=== PATIENT | female | born 1945 | race Caucasian/White ===

== ENCOUNTER → 2016-08-07 | Outpatient (CLI) | payer OTHER ==
[~2016-08-07] MED LIST: ATOR10TA PO
[2016-08-07 10:54] LABS: Urine RBC None Seen /hpf (0 - 4)
[2016-08-07 11:14] LABS: Basophils # (auto) 0 uL; Basophils % (auto) 0.6 % (0.0-2.0); Eosinophils # (auto) 0.2 uL; Eosinophils % (auto) 2.7 % (0.0-7.0); Hematocrit 48.6 % (36.0-46.0); Lymphocytes # (auto) 2.1 uL; Lymphocytes % (auto) 36.7 % (10.0-50.0); Mean Corpuscular Hemoglobin 30.9 pg (28.0-32.0); Mean Corpuscular Volume 93.7 fL (80.0-100.0); Monocytes # (auto) 0.5 uL; Monocytes % (auto) 9.6 % (0.0-12.0); Neutrophils # (auto) 2.8 uL; Neutrophils % (auto) 50.4 % (37.0-80.0); Platelet Count (auto) 305 10^3/uL (140-450); Red Cell Distribution Width 12.9 % (11.6-16.0); White Blood Cell 5.6 10^3/uL (4.4-10.8)
[2016-08-07 11:18] LABS: Urine Bilirubin Negative (Negative); Urine Blood Negative /uL (Negative); Urine Color Yellow (Yellow); Urine Glucose Normal (Normal); Urine Ketone Negative (Negative); Urine Nitrite Negative (Negative); Urine Squamous Epithelial Cell FEW /hpf (<5); Urine Urobilinogen Normal (Negative); Urine pH 6.5 (5.0-8.0)
[2016-08-07 11:30] LABS: Albumin 3.7 g/dL (3.4-5.0); BUN/Creatinine Ratio 23.6; Bilirubin, Total 0.4 mg/dL (0.2-1.0); Potassium 5.1 mmol/L (3.5-5.1); Total Protein 6.8 g/dL (6.4-8.2)
== END | disposition home or self-care (01) ==
LOC: LAB 09:47
PROVIDERS: ATTEND Internal Medicine
DX: E78.00 Pure hypercholesterolemia, unspecified (principal); Z00.00 Encounter for general adult medical examination without abnormal findings; I10 Essential (primary) hypertension
CPT/HCPCS: 36415; 80053; 80061; 81001; 83615; 84443; 85025

== ENCOUNTER 2020-11-28 08:15 | Emergency (ER) | payer OTHER ==
[~2020-11-28] VITALS: Ht 152.4 cm; Wt 73.5 kg
[2020-11-28] MEDS ORDERED: PRED1SUS4 LEFTEYE (08:36)
[2020-11-28] MEDS ORDERED: FORM1POW2 (08:36)
[2020-11-28] MEDS ORDERED: FLUT1AER3 PO (08:36)
[2020-11-28] MEDS ORDERED: LISI-275 PO (08:36)
[2020-11-28] MEDS ORDERED: ALBU0.084 NEB (08:36)
[2020-11-28] MEDS ORDERED: PANT-62 (08:36)
[2020-11-28] MEDS ORDERED: PRED1SUS4 (08:36)
[2020-11-28] MEDS ORDERED: ofloxacin (08:36)
[2020-11-28] MEDS ORDERED: ALBU108A5 PO (08:36)
[2020-11-28] MEDS ORDERED: FLUT100M INH (08:36)
[2020-11-28] MEDS ORDERED: ALPR0.255 PO (08:36)
[2020-11-28] MEDS ORDERED: ATOR20TA50 PO (08:36)
[2020-11-28] MEDS ORDERED: AMLO-496 PO (08:36)
[2020-11-28 08:52] LABS: Basophils # (auto) 0 10 ^3/uL (0-0.2); Basophils % (auto) 0.6 % (0.0-2.0); Eosinophils # (auto) 0.1 10 ^3/uL (0-0.8); Eosinophils % (auto) 1.5 % (0.0-7.0); Hematocrit 47.4 % (36.0-46.0); Hemoglobin 15.6 g/dL (12.2-16.2); Lymphocytes # (auto) 0.9 10 ^3/uL (0.4-5.4); Lymphocytes % (auto) 16.7 % (10.0-50.0); Mean Corpuscular Hemoglobin 31.6 pg (28.0-32.0); Mean Corpuscular Hgb Conc. 32.9 g/dL (32.0-36.0); Mean Corpuscular Volume 95.9 fL (80.0-100.0); Monocytes # (auto) 0.5 10 ^3/uL (0-1.3); Monocytes % (auto) 8.8 % (0.0-12.0); Neutrophils # (auto) 3.7 10 ^3/uL (1.6-8.6); Neutrophils % (auto) 72.4 % (37.0-80.0); Nucleated Red Blood Cells % 0.1 %; Platelet Count (auto) 229 10^3/uL (140-450); Red Blood Cells 4.94 10^6/uL (4.0-5.20); Red Cell Distribution Width 14.9 % (11.8-14.3); White Blood Cell 5.1 10^3/uL (4.4-10.8)
[2020-11-28 09:17] LABS: Albumin 3.4 g/dL (3.4-5.0); Anion Gap 4 (5-15); Blood Urea Nitrogen 12 mg/dL (7-18); Calcium 8.1 mg/dL (8.5-10.1); Carbon Dioxide 31 mmol/L (21-32); Chloride 105 mmol/L (98-107); Glucose 131 mg/dL (74-106); Potassium 4.2 mmol/L (3.5-5.1); Sodium 140 mmol/L (136-145)
[2020-11-28 09:27] LABS: Alanine Aminotransferase 22 U/L (13-56); Alkaline Phosphatase 107 U/L (45-117); Aspartate Aminotransferase 17 U/L (15-37); BUN/Creatinine Ratio 21.1; Bilirubin, Total 0.4 mg/dL (0.2-1.0); GFR African American 133 mL/min; GFR Non-African American 110 mL/min
[2020-11-28] MEDS ORDERED: methylPREDNISolone SOD SUCC 125 MG/2 ML VL IV ONE (10:45)
[2020-11-28 11:00] VITALS: BP 150/61
== END 2020-11-28 12:46 | disposition home or self-care (01) ==
LOC: EDBD 08:15 → ER 08:15
DX: J44.1 Chronic obstructive pulmonary disease with (acute) exacerbation (principal); E78.5 Hyperlipidemia, unspecified; I10 Essential (primary) hypertension; F17.210 Nicotine dependence, cigarettes, uncomplicated; Z98.51 Tubal ligation status; Z79.899 Other long term (current) drug therapy
CPT/HCPCS: 36415; 71045; 80053; 83880; 84484; 85025; 93005; 96374; 99285; J2930

== ENCOUNTER 2021-01-16 07:58 | Emergency (ER) | payer OTHER ==
[~2021-01-16] VITALS: Ht 157.5 cm; Wt 72.6 kg
[~2021-01-16 07:58] MED LIST changes: +ALBU0.084 NEB; +ALBU108A5 PO; +ALPR0.255 PO; +AMLO-496 PO; +ATOR20TA50 PO; +FLUT100M INH; +FLUT1AER3 PO; +FORM1POW2; +LISI-275 PO; +PANT-62; +PRED1SUS4; +PRED1SUS4 LEFTEYE; +ofloxacin
[2021-01-16] MEDS ORDERED: cefTRIAXone 1GM/50ML D5W 50 ML IV ONE (08:00)
[2021-01-16] MEDS ORDERED: methylPREDNISolone SOD SUCC 125 MG/2 ML VL IV ONE (08:00)
[2021-01-16] MEDS ORDERED: LABETALOL HCL 5 MG/ML 4ML SYRINGE IV ONE (08:00)
[2021-01-16] MEDS ORDERED: MAGNESIUM SULFATE 1GM/100ML 100 ML IV ONE (08:15)
[2021-01-16 08:27] LABS: Basophils # (auto) 0 10 ^3/uL (0-0.2); Basophils % (auto) 0.7 % (0.0-2.0); Eosinophils # (auto) 0.1 10 ^3/uL (0-0.8); Eosinophils % (auto) 1.6 % (0.0-7.0); Hematocrit 50.1 % (36.0-46.0); Hemoglobin 16.8 g/dL (12.2-16.2); Lymphocytes # (auto) 1.5 10 ^3/uL (0.4-5.4); Mean Corpuscular Hemoglobin 31.2 pg (28.0-32.0); Mean Corpuscular Hgb Conc. 33.4 g/dL (32.0-36.0); Mean Corpuscular Volume 93.4 fL (80.0-100.0); Monocytes # (auto) 0.5 10 ^3/uL (0-1.3); Monocytes % (auto) 8.4 % (0.0-12.0); Neutrophils % (auto) 65.3 % (37.0-80.0); Nucleated Red Blood Cells % 0.1 %; Red Blood Cells 5.37 10^6/uL (4.0-5.20); White Blood Cell 6.2 10^3/uL (4.4-10.8)
[2021-01-16 08:42] LABS: Albumin 3.5 g/dL (3.4-5.0); Anion Gap 3 (5-15); Blood Urea Nitrogen 15 mg/dL (7-18); Calcium 8.2 mg/dL (8.5-10.1); Carbon Dioxide 31 mmol/L (21-32); Chloride 107 mmol/L (98-107); Glucose 150 mg/dL (74-106); Potassium 3.8 mmol/L (3.5-5.1); Sodium 141 mmol/L (136-145)
[2021-01-16 08:50] LABS: Alanine Aminotransferase 25 U/L (13-56); Alkaline Phosphatase 119 U/L (45-117); Aspartate Aminotransferase 14 U/L (15-37); BUN/Creatinine Ratio 26.8; Bilirubin, Total 0.4 mg/dL (0.2-1.0); GFR African American 135 mL/min; GFR Non-African American 112 mL/min; Total Protein 7.5 g/dL (6.4-8.2)
[2021-01-16] MEDS ORDERED: IOHEXOL 350 MG/ML 100ML IJ ONE (10:28)
[2021-01-16 12:06] LABS: Urine Bacteria NONE SEEN /hpf (None Seen); Urine Blood Negative /uL (Negative); Urine WBC 4 /hpf (0 - 5)
[2021-01-16 12:09] LABS: Urine Specific Gravity > 1.050 (1.001-1.035)
[2021-01-16] MEDS ORDERED: IPRA0.00 IN (12:11)
[2021-01-16] MEDS ORDERED: METH4PAK PO (12:11)
[2021-01-16] MEDS ORDERED: AZITTAB PO (12:11)
[2021-01-16 14:02] VITALS: BP 149/68
== END 2021-01-16 15:00 | disposition home or self-care (01) ==
LOC: EDUNIT# 07:58 → ER 07:58 → EDBD 07:58 → ER 15:00
DX: J44.1 Chronic obstructive pulmonary disease with (acute) exacerbation (principal); R06.03 Acute respiratory distress; R79.89 Other specified abnormal findings of blood chemistry; E78.5 Hyperlipidemia, unspecified; I10 Essential (primary) hypertension; Z98.51 Tubal ligation status; Z87.442 Personal history of urinary calculi; Z20.822 Contact with and (suspected) exposure to COVID-19
CPT/HCPCS: 36415; 36600; 71045; 71275; 80053; 81001; 82728; 82805; 83880; 84484; 85025; 85379; 86141; 87426; 93005; 94660; 96365; 96367; 96375; 99291; J0696; J2930; J3475; J3490; Q9967

== ENCOUNTER 2023-06-12 08:05 | Inpatient (IN) | payer MEDICARE, OTHER ==
[~2023-06-12] VITALS: Ht 154.9 cm; Wt 72.1 kg
[~2023-06-12 08:05] MED LIST changes: +ALBU108A5 INH; -ALBU108A5 PO; -AMLO-496 PO; +AMLO1TAB23 PO; +AZITTAB PO; +FLUT1AER3 INH; -FLUT1AER3 PO; +IPRA0.00 IN; +METH4PAK PO
[2023-06-12 08:30] VITALS: PULSE 97; RESP 32; O2SAT 90
[2023-06-12 08:49] LABS: Basophils # (auto) 0 10 ^3/uL (0-0.2); Eosinophils # (auto) 0.1 10 ^3/uL (0-0.8); Hematocrit 50.7 % (36.0-46.0); Monocytes # (auto) 0.6 10 ^3/uL (0-1.3); Neutrophils # (auto) 4.2 10 ^3/uL (1.6-8.6); Red Cell Distribution Width 14.3 % (11.8-14.3)
[2023-06-12 08:50] LABS: Basophils % (auto) 0.5 % (0.0-2.0); Eosinophils % (auto) 1.9 % (0.0-7.0); Hemoglobin 16.7 g/dL (12.2-16.2); Lymphocytes % (auto) 17.1 % (10.0-50.0); Mean Corpuscular Hemoglobin 33.6 pg (28.0-32.0); Mean Corpuscular Hgb Conc. 32.8 g/dL (32.0-36.0); Mean Corpuscular Volume 102.4 fL (80.0-100.0); Monocytes % (auto) 10.4 % (0.0-12.0); Neutrophils % (auto) 70.1 % (37.0-80.0); Nucleated Red Blood Cells % 0.2 %; Red Blood Cells 4.95 10^6/uL (4.0-5.20)
[2023-06-12] MEDS ORDERED: IPRATROPIUM BROM 0.5 MG/2.5ML INH SOL NEB ONE (09:00)
[2023-06-12] MEDS ORDERED: ALBUTEROL SULF 2.5 MG/0.5ML(0.5%) NEB SOLN NEB ONE (09:00)
[2023-06-12] MEDS ORDERED: MAGNESIUM SULFATE 1GM/100ML 100 ML IV ONE (09:00)
[2023-06-12] MEDS ORDERED: methylPREDNISolone SOD SUCC 125 MG/2 ML VL IV ONE (09:00)
[2023-06-12 09:03] LABS: Alanine Aminotransferase 70 U/L (7-40); Albumin 4.4 g/dL (3.2-4.8); Alkaline Phosphatase 124 U/L (46-116); Anion Gap 7 (5-15); Aspartate Aminotransferase 31 U/L (13-40); Blood Urea Nitrogen 8 mg/dL (9-23); Calcium 9.4 mg/dL (8.5-10.1); Carbon Dioxide 31 mmol/L (20-30); Chloride 106 mmol/L (98-107); Glucose 126 mg/dL (74-106); Potassium 4.3 mmol/L (3.5-5.1); Sodium 144 mmol/L (136-145); Total Protein 6.4 g/dL (5.7-8.2)
[2023-06-12 10:07] LABS: Rapid Influenza A Negative (Negative); Rapid Influenza B Negative (Negative)
[2023-06-12 10:09] LABS: COVID19 ANTIGEN SOFIA FIA NEGATIVE (NEGATIVE)
[2023-06-12] MEDS ORDERED: FUROSEMIDE 40 MG/4 ML VIAL IV ONE (10:45)
[2023-06-12] MEDS ORDERED: LISINOPRIL 5 MG TAB PO SCH (12:00)
[2023-06-12 12:24] LABS: Urine Bacteria FEW /hpf (None Seen); Urine Blood Negative /uL (Negative); Urine Clarity Clear (Clear); Urine Protein, UAD 2+ (Negative); Urine Specific Gravity 1.007 (1.001-1.035); Urine Urobilinogen Normal (Negative); Urine WBC 1 /hpf (0 - 5); Urine pH 6.5 (5.0-8.0)
[2023-06-12 12:42] LABS: Urine Color Straw (Yellow)
[2023-06-12] MEDS: ENOXAPARIN SOD 40 MG/0.4 ML SYRINGE SC SCH (12:52)
[2023-06-12] MEDS: methylPREDNISolone SOD SUCC 125 MG/2 ML VL IV SCH ×2 (14:03→22:07)
[2023-06-12 15:43] VITALS: BP 127/96; PULSE 105; RESP 18; RESP 20; TEMP 97.8; O2SAT 97
[2023-06-12 15:45] VITALS: BP 142/83; PULSE 88; RESP 17; TEMP 98.8; O2SAT 93
[2023-06-12 16:44] VITALS: BP 142/83; PULSE 88; RESP 17; TEMP 98.8; O2SAT 93
[2023-06-12] MEDS: FUROSEMIDE 20 MG/2 ML VIAL IV SCH (18:17)
[2023-06-12 20:00] VITALS: PULSE 95
[2023-06-12 22:00] VITALS: BP 141/89; PULSE 87; RESP 17; TEMP 97.5; O2SAT 95
[2023-06-12] MEDS ORDERED: ATORVASTATIN 20 MG TAB PO SCH (22:00)
[2023-06-13] VITALS (12 sets, daily range): BP systolic 140–154; BP diastolic 69–89; PULSE 73–99; RESP 14–22; TEMP 97–98.5; O2SAT 90–100
[2023-06-13 06:29] LABS: Basophils # (auto) 0 10 ^3/uL (0-0.2); Eosinophils # (auto) 0 10 ^3/uL (0-0.8); Lymphocytes # (auto) 0.3 10 ^3/uL (0.4-5.4); Monocytes # (auto) 0.2 10 ^3/uL (0-1.3)
[2023-06-13 06:30] LABS: Basophils % (auto) 0.1 % (0.0-2.0); Hematocrit 47.8 % (36.0-46.0); Hemoglobin 15.7 g/dL (12.2-16.2); Lymphocytes % (auto) 4.2 % (10.0-50.0); Mean Corpuscular Hemoglobin 33.6 pg (28.0-32.0); Mean Corpuscular Hgb Conc. 32.8 g/dL (32.0-36.0); Mean Corpuscular Volume 102.3 fL (80.0-100.0); Monocytes % (auto) 2.4 % (0.0-12.0); Neutrophils # (auto) 7.3 10 ^3/uL (1.6-8.6); Neutrophils % (auto) 93.3 % (37.0-80.0); Red Blood Cells 4.67 10^6/uL (4.0-5.20); White Blood Cell 7.9 10^3/uL (4.4-10.8)
[2023-06-13] MEDS: methylPREDNISolone SOD SUCC 125 MG/2 ML VL IV SCH (06:33)
[2023-06-13] MEDS: FUROSEMIDE 20 MG/2 ML VIAL IV SCH ×2 (06:34→17:54)
[2023-06-13 06:41] LABS: Alanine Aminotransferase 48 U/L (7-40); Albumin 4.1 g/dL (3.2-4.8); Alkaline Phosphatase 103 U/L (46-116); Anion Gap 6 (5-15); Aspartate Aminotransferase 15 U/L (13-40); BUN/Creatinine Ratio 16.4 (10.0-20.0); Blood Urea Nitrogen 10 mg/dL (9-23); Calcium 9.3 mg/dL (8.5-10.1); Carbon Dioxide 36 mmol/L (20-30); Chloride 102 mmol/L (98-107); Glucose 173 mg/dL (74-106); LDL Cholesterol 98 mg/dL (< 100); Potassium 4.1 mmol/L (3.5-5.1); Sodium 144 mmol/L (136-145); Triglycerides 78 mg/dL (< 150)
[2023-06-13 06:42] LABS: Bilirubin, Total 0.5 mg/dL (0.2-1.0); Cholesterol 206 mg/dL (< 200); HDL Cholesterol 89 mg/dL (40-59); Total Protein 6.2 g/dL (5.7-8.2)
[2023-06-13] MEDS ORDERED: methylPREDNISolone SOD SUCC 40 MG/ML VL IV SCH (10:00)
[2023-06-13] MEDS ORDERED: amLODIPine BESYLATE 5 MG TAB PO SCH (10:00)
[2023-06-13] MEDS ORDERED: ATORVASTATIN 20 MG TAB PO SCH ×2 (10:00→22:00)
[2023-06-13] MEDS: ASPirin 81 mg TAB PO SCH (10:03)
[2023-06-13] MEDS: PANTOPRAZOLE 40 MG TAB PO SCH (10:03)
[2023-06-13] MEDS: ENOXAPARIN SOD 40 MG/0.4 ML SYRINGE SC SCH (10:04)
[2023-06-13] MEDS: IPRATROPIUM BROM 0.5 MG/2.5ML INH SOL NEB PRN ×2 (10:34→19:58)
[2023-06-13] MEDS: ALBUTEROL SULF 2.5 MG/0.5ML(0.5%) NEB SOLN NEB PRN ×2 (10:34→19:58)
[2023-06-13] MEDS ORDERED: cefTRIAXone 1GM/50ML D5W 50 ML IV ONE (10:45)
[2023-06-13] MEDS ORDERED: AZITHROMYCIN 500MG/ 250ML 250 ML IV ONE (10:45)
[2023-06-13 12:24] LABS: Free T3 2.14 pg/mL (2.3-4.2)
[2023-06-13] MEDS ORDERED: PANT40TA57 PO (13:27)
[2023-06-13] MEDS ORDERED: LISINOPRIL 5 MG TAB PO SCH (13:30)
[2023-06-13] MEDS: METOPROLOL TARTRATE 25 MG TAB PO SCH (21:05)
[2023-06-13] MEDS ORDERED: METOPROLOL TARTRATE 25 MG TAB PO SCH (22:00)
[2023-06-14 05:00] VITALS: BP 143/67; PULSE 63; RESP 17; TEMP 97.8; O2SAT 97
[2023-06-14] MEDS ORDERED: FUROSEMIDE 20 MG/2 ML VIAL IV SCH ×3 (06:00→10:00)
[2023-06-14 06:08] LABS: Basophils # (auto) 0 10 ^3/uL (0-0.2); Basophils % (auto) 0.1 % (0.0-2.0); Eosinophils # (auto) 0 10 ^3/uL (0-0.8); Eosinophils % (auto) 0.1 % (0.0-7.0); Neutrophils # (auto) 7.1 10 ^3/uL (1.6-8.6); White Blood Cell 8.7 10^3/uL (4.4-10.8)
[2023-06-14 06:11] LABS: Hemoglobin 15.3 g/dL (12.2-16.2); Lymphocytes # (auto) 0.9 10 ^3/uL (0.4-5.4); Lymphocytes % (auto) 9.8 % (10.0-50.0); Mean Corpuscular Hemoglobin 33.2 pg (28.0-32.0); Mean Corpuscular Hgb Conc. 32.5 g/dL (32.0-36.0); Mean Corpuscular Volume 102.4 fL (80.0-100.0); Monocytes # (auto) 0.8 10 ^3/uL (0-1.3); Monocytes % (auto) 8.6 % (0.0-12.0); Neutrophils % (auto) 81.4 % (37.0-80.0); Red Blood Cells 4.59 10^6/uL (4.0-5.20)
[2023-06-14 06:34] LABS: Anion Gap 4 (5-15); Carbon Dioxide 38 mmol/L (20-30); Chloride 101 mmol/L (98-107); Potassium 3.8 mmol/L (3.5-5.1); Sodium 143 mmol/L (136-145)
[2023-06-14 06:40] LABS: BUN/Creatinine Ratio 26.9 (10.0-20.0); Blood Urea Nitrogen 18 mg/dL (9-23); Glucose 114 mg/dL (74-106)
[2023-06-14 06:41] LABS: Magnesium 2.2 mg/dL (1.6-2.6)
[2023-06-14 08:00] VITALS: PULSE 50; PULSE 62; O2SAT 95
[2023-06-14 09:00] VITALS: BP 144/69; PULSE 69; RESP 24; TEMP 97.7; O2SAT 96
[2023-06-14] MEDS ORDERED: cefTRIAXone 1GM/50ML D5W 50 ML IV SCH (09:00)
[2023-06-14] MEDS ORDERED: REGADENOSON 0.4 MG/5 ML SYRG IV ONE ×2 (09:06→09:15)
[2023-06-14] MEDS: ENOXAPARIN SOD 40 MG/0.4 ML SYRINGE SC SCH (09:58)
[2023-06-14] MEDS: METOPROLOL TARTRATE 25 MG TAB PO SCH (09:59)
[2023-06-14 10:00] VITALS: O2SAT 91
[2023-06-14] MEDS ORDERED: methylPREDNISolone SOD SUCC 40 MG/ML VL IV SCH (10:00)
[2023-06-14] MEDS: ASPirin 81 mg TAB PO SCH (10:00)
[2023-06-14] MEDS: PANTOPRAZOLE 40 MG TAB PO SCH (10:00)
[2023-06-14] MEDS ORDERED: amLODIPine BESYLATE 5 MG TAB PO SCH (10:00)
[2023-06-14] MEDS ORDERED: AZITHROMYCIN 500MG/ 250ML 250 ML IV SCH (10:00)
[2023-06-14 11:17] VITALS: BP 136/65; PULSE 63; RESP 18; TEMP 97.6; O2SAT 95
[2023-06-14 11:28] LABS: Free T4 (Free Thyroxine) 0.88 ng/dL (0.89-1.76)
[2023-06-15] MEDS ORDERED: SACUBITRIL-VALSARTAN 24mg/26mg TAB PO SCH (02:00)
== END 2023-06-14 12:30 | disposition home or self-care (01) | DRG 177 ==
LOC: EDBD 08:05 → ER 08:05 → TELE 12:06 → TELE-EAST 15:35 → EAST 06-14 09:56
PROVIDERS: ADMIT Internal Medicine; ATTEND Internal Medicine
DX: J15.69 Pneumonia due to other Gram-negative bacteria (principal); I50.41 Acute combined systolic (congestive) and diastolic (congestive) heart failure; J96.01 Acute respiratory failure with hypoxia; J96.02 Acute respiratory failure with hypercapnia; J44.1 Chronic obstructive pulmonary disease with (acute) exacerbation; J44.0 Chronic obstructive pulmonary disease with (acute) lower respiratory infection; E78.5 Hyperlipidemia, unspecified; Z20.822 Contact with and (suspected) exposure to COVID-19; E03.9 Hypothyroidism, unspecified; E66.9 Obesity, unspecified; F41.9 Anxiety disorder, unspecified; R91.1 Solitary pulmonary nodule; I11.0 Hypertensive heart disease with heart failure; Z87.442 Personal history of urinary calculi; Z87.891 Personal history of nicotine dependence; Z82.3 Family history of stroke; Z83.3 Family history of diabetes mellitus; Z68.30 Body mass index [BMI] 30.0-30.9, adult
CPT/HCPCS: 36415; 71045; 71250; 78452; 80048; 80053; 80061; 81001; 82962; 83036; 83735; 83880; 84439; 84443; 84481; 84484; 85025; 85379; 87081; 87426; 87804; 93005; 93017; 93306; 94640; 94644; 96365; 96372; 96375; 99291; G0378

== ENCOUNTER → 2023-08-15 | Outpatient (CLI) | payer MEDICARE, OTHER ==
[~2023-08-15] MED LIST changes: -ALBU0.084 NEB; +ALBUTEROL SULF 2.5 MG/0.5ML(0.5%) NEB SOLN ONE; -ALPR0.255 PO; -ATOR10TA PO; -AZITTAB PO; -FLUT100M INH; -FORM1POW2; -IPRA0.00 IN; -METH4PAK PO; -PANT-62; +PANT40TA57 PO; -PRED1SUS4; -PRED1SUS4 LEFTEYE; -ofloxacin
== END | disposition home or self-care (01) ==
LOC: RT 08:32
PROVIDERS: ATTEND Internal Medicine Pulmonary Disease
DX: J44.9 Chronic obstructive pulmonary disease, unspecified (principal)
CPT/HCPCS: 94060; 94727; 94729

== ENCOUNTER 2024-07-20 03:17 | Inpatient (IN) | payer MEDICARE, OTHER ==
[2024-07-20] VITALS (29 sets, daily range): BP systolic 76–150; BP diastolic 44–127; PULSE 82–128; RESP 15–32; TEMP 98–101.2; O2SAT 89–100
[~2024-07-20] VITALS: Ht 152.4 cm; Wt 67.3 kg
[~2024-07-20 03:17] MED LIST changes: -ALBUTEROL SULF 2.5 MG/0.5ML(0.5%) NEB SOLN ONE
--- NOTE | 2024-07-20 03:41 | ED.PDOC ---
SOB-HPI HPI Comments 79-year-old female came to ER via EMS for shortness of breath pain. Patient has a history of hypertension, CHF, COPD on home oxygen at 6 liters/minute. Few hours ago, developed shortness of breath progressively worsening. Denies any chest pains or wheezing. But arrival patient is saturating 82% at 6 lpm. Patient was placed in the non-rebreather and went up to 95%. 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 Family History Family History: Reviewed,noncontributory to illness Social History Smoker: Non-Smoker, Quit Greater Than 1 Year Alcohol: Denies ETOH Use Drugs: Denies Drug Use Lives In: Home Constitutional: denies: chills, diaphoresis, fatigue, fever, malaise, sweats, weakness, others EENTM: denies: blurred vision, double vision, ear bleeding, ear discharge, ear drainage, ear pain, ear ringing, eye pain, eye redness, hearing loss, mouth pain, mouth swelling, nasal discharge, nose bleeding, nose congestion, nose pain, photophobia, tearing, throat pain, throat swelling, voice changes, others Respiratory: reports: SOB at rest; denies: cough, hemoptysis, orthopnea, shortness of breath, SOB with excertion, stridor, wheezing, others Cardiovascular: denies: chest pain, dizzy spells, diaphoresis, Dyspnea on exer tion, edema, irregular heart beat, left arm pain, lightheadedness, palpitations, PND, syncope, others Gastrointestinal: denies: abdomen distended, abdominal pain, blood streaked bowels, constipated, diarrhea, dysphagia, difficulty swallowing, hematemesis, melena, nausea, poor appetite, poor fluid intake, rectal bleeding, rectal pain, vomiting, others Genitourinary: denies: abnormal vagina bleeding, burning, dyspareunia, dysuria, flank pain, frequency, hematuria, incontinence, pain, , vagina discharge, urgency, others Neurological: denies: dizziness, fainting, headache, left sided numbness, left sided weakness, numbness, paresthesia, pre-existing deficit, right sided numbness, right sided weakness, seizure, speech problems, tingling, tremors, weakness, others Musculoskeletal: denies: back pain, gout, joint pain, joint swelling, muscle pain, muscle stiffness, neck pain, others Integumetry: denies: bruises, change in color, change in hair/nails, dryness, laceration, lesions, lumps, rash, wounds, others Allergic/Immunocompromised: denies: Difficulty Healing, Frequent Infections, Hives, Itching, others Hematologic/Lymphatic: denies: anemia, blood clots, easy bleeding, easy bruising, swollen glands, others Endocrine: denies: excessive hunger, excessive sweating, excessive thirst, excessive urination, flushing, intolerance to cold, intolerance to heat, unexplained weight gain, unexplained weight loss, others Psychiatric: denies: anxiety, bipolar disorder, depression, hopeless, panic disorder, schizophrenia, sleepless, suicidal, others Physical Exam General Appearance: Normal, Severe Distress HEENT: Normal ENT Inspection, Pharynx Normal, TMs Normal Neck: Full Range of Motion, Non-Tender, Normal, Normal Inspection Respiratory: Chest Non-Tender, Lungs Clear, No Accessory Muscle Use, No Respiratory Distress, Normal Breath Sounds Cardiovascular: No Edema, No JVD, No Murmur, No Gallop, Normal Peripheral Pulses, Regular Rate/Rhythm Breast Exam: Deferred Gastrointestinal: No Organomegaly, Non Tender, No Pulsatile Mass, Normal Bowel Sounds, Soft Genitalia: Deferred Pelvic: Deferred Rectal: Deferred Extremities: No calf tenderness, Normal capillary refill, Normal inspection, Normal range of motion, Non-tender, No pedal edema Musculoskeletal : Apperance: Normal Neurologic: Alert, rpg programmer II-XII nml as Tested, No Motor Deficits, Normal Affect, Normal Mood, No Sensory Deficits Cerebellar Function: Normal Reflexes: Normal Skin: Dry, Normal Color, Warm Lymphatic: No Adenopathy EKG EKG : Pulse Rate (adult): 107 Cardiac Rhythm: ST Hypertrophy: LAE ST: Old, Ant, Infarct Was a procedure done? Was a procedure done?: No Differential Dx Differential Diagnosis: Bronchitis, CHF, COPD, Myocardial infarction, Pneumonia, Respiratory Distress X-Ray, Labs, Meds, VS Vital Signs Date Time Temp Pulse Resp B/P (MAP) Pulse Ox O2 Delivery O2 Flow Rate FiO2 07/20/24 04:30 84 29 120/61 (80) 93 07/20/24 04:25 101 175/76 07/20/24 04:00 102 24 183/82 (115) 100 07/20/24 03:40 107 07/20/24 03:35 99 Bi-Pap+ 100 100 07/20/24 03:35 113 Facial BiPAP Mask 100 07/20/24 03:31 101.6 121 40 212/80 (124) 99 07/20/24 03:30 107 23 100 Bi-Pap+ 45 45 07/20/24 03:30 101.6 107 23 212/88 (129) 100 101.6 07/20/24 03:27 107 Lab Test 07/20/24 03:54 07/20/24 03:48 Range/Units Blood Gas Specimen Type Arterial Blood Gas Sample Site Right radial Blood Gas Patient Temperature 37.0 Arterial Blood Date Drawn [id number] Arterial Blood pH 7.406 7.350-7.450 Arterial Blood Partial Pressure CO2 52.2 H 32.0-45.0 mmHg Arterial Blood Partial Pressure O2 316.9 *H 83.0-108.0 mmHg Arterial Blood HCO3 32.0 H 21.0-28.0 mmol/L Arterial Blood Oxygen Saturation 99.8 H 94.0-98.0 % Arterial Blood Base Excess 5.9 H -2.0-3.0 mmol/L Arterial Blood Oxyhemoglobin 98.4 H 94.0-98.0 % Arterial Blood Carboxyhemoglobin 0.9 0.5-1.5 % Arterial Blood Methemoglobin 0.5 0.0-1.5 % Jacek Test Yes Blood Gas Total Hemoglobin 14.80 12.0-16.0 g/dL Blood Gas Set Respiration Rate 12.0 Blood Gas Modality Mask - bipap FiO2 % 100.0 Blood Gas EPAP 6 Blood Gas IPAP 14 Blood Gas Critical Value Read Back Yes Blood Gas Notified Whom Md sara mckinley Blood Gas Notified Time [id number] Blood Gas Notified By Social Science Manager esha narayanan White Blood Count 4.7 4.4-10.8 10^3/uL Red Blood Count 4.49 4.0-5.20 10^6/uL Hemoglobin 14.6 12.2-16.2 g/dL Hematocrit 44.5 36.0-46.0 % Mean Corpuscular Volume 99.1 80.0-100.0 fL Mean Corpuscular Hemoglobin 32.6 H 28.0-32.0 pg Mean Corpuscular Hemoglobin Concent 32.9 32.0-36.0 g/dL Red Cell Distribution Width 12.4 11.8-14.3 % Platelet Count 161 140-450 10^3/uL Mean Platelet Volume 6.4 L 6.9-10.8 fL Neutrophils (%) (Auto) 82.9 H 37.0-80.0 % Lymphocytes (%) (Auto) 8.0 L 10.0-50.0 % Monocytes (%) (Auto) 8.3 0.0-12.0 % Eosinophils (%) (Auto) 0.6 0.0-7.0 % Basophils (%) (Auto) 0.2 0.0-2.0 % Neutrophils # (Auto) 3.9 1.6-8.6 10 ^3/uL Lymphocytes # (Auto) 0.4 0.4-5.4 10 ^3/uL Monocytes # (Auto) 0.4 0-1.3 10 ^3/uL Eosinophils # (Auto) 0 0-0.8 10 ^3/uL Basophils # (Auto) 0 0-0.2 10 ^3/uL Nucleated Red Blood Cells 0.1 % B-Type Natriuretic Peptide 77.62 0-100 pg/mL Current Medications Medications (Trade) Dose Ordered Sig/Janet Route Start Time Stop Time Status Last Admin Labetalol HCl (Labetalol HCl) 20 mg ONCE ONCE IV 07/20/24 04:15 07/20/24 04:16 DC 07/20/24 04:25 Acetaminophen (Ofirmev) 1,000 mg ONCE ONCE IV 07/20/24 04:15 07/20/24 04:16 DC 07/20/24 04:25 EXAM: XY CHEST XRAY 1 VIEW HISTORY: SOB COMPARISON: XY CHEST PORTABLE on DOS: 06/12/23, CHEST PORTABLE on DOS: 01/16/21, CHEST PORTABLE on DOS: 6/13/21, chest CT dated 06/13/2023 TECHNIQUE: Portable AP view of the chest was performed. FINDINGS: No pneumothorax, consolidative infiltrates, or pulmonary edema. There is central peribronchial thickening. The heart is borderline enlarged. IMPRESSION: Reactive airways disease. The lungs are otherwise clear. PCO2 is 52. CBC is normal. Sepsis protocol was followed. Labetalol was given for hypertension Time of 1ST Reevaluation: 03:32 Reevaluation 1ST: Unchanged Patient Education/Counseling: Diagnosis, Treatment Family Education/Counseling: No Family Present Departure 1 Departure Time of Disposition: 05:33 Impression: Primary Impression: Acute respiratory distress Additional Impressions: COPD with acute exacerbation Reactive airway disease Qualified Codes: J45.901 - Unspecified asthma with (acute) exacerbation Hypertension Disposition: ADMITTED INPATIENT Admit to: [facility] [place] Condition: Guarded Critical Care Note Critical Care Time?: Yes (35 min-critical care time only) Critical care comment: Shortness of breath Stability Stability form required: No Heart Score Heart Score: Heart Score Response (Comments) Value History Moderate Suspicious 1 EKG Repolarization Disturb 1 Age >65 2 Risk Factors >3 or Hx ASHD 2 Troponin Normal limit 0 Total 6 I personally scribed for PANCHO MCKINLEY MD ([email or web address]) on 07/20/24 at 03:40. Electronically submitted by Eulalio Cardenas ([email or web address]). I personally scribed for PANCHO MCKINLEY MD ([email or web address]) on 07/20/24 at 04:27. Electronically submitted by Eulalio Cardenas ([email or web address]). PANCHO MCKINLEY MD Jul 20, 2024 03:40
[2024-07-20 03:59] LABS: Basophils # (auto) 0 10 ^3/uL (0-0.2); Basophils % (auto) 0.2 % (0.0-2.0); Eosinophils # (auto) 0 10 ^3/uL (0-0.8); Eosinophils % (auto) 0.6 % (0.0-7.0); Hematocrit 44.5 % (36.0-46.0); Hemoglobin 14.6 g/dL (12.2-16.2); Lymphocytes # (auto) 0.4 10 ^3/uL (0.4-5.4); Mean Corpuscular Hemoglobin 32.6 pg (28.0-32.0); Mean Corpuscular Hgb Conc. 32.9 g/dL (32.0-36.0); Mean Corpuscular Volume 99.1 fL (80.0-100.0); Monocytes # (auto) 0.4 10 ^3/uL (0-1.3); Monocytes % (auto) 8.3 % (0.0-12.0); Neutrophils # (auto) 3.9 10 ^3/uL (1.6-8.6); Neutrophils % (auto) 82.9 % (37.0-80.0); Nucleated Red Blood Cells % 0.1 %; Platelet Count (auto) 161 10^3/uL (140-450); Red Blood Cells 4.49 10^6/uL (4.0-5.20); Red Cell Distribution Width 12.4 % (11.8-14.3); White Blood Cell 4.7 10^3/uL (4.4-10.8)
[2024-07-20 04:22] LABS: Base Excess 5.9 mmol/L (-2.0-3.0)
[2024-07-20] MEDS: LABETALOL HCL 20 MG/4 ML VL IV ONE (04:25)
[2024-07-20] MEDS: ACETAMINOPHEN IV 1000 MG/100ML (10MG/ML) IV ONE (04:25)
--- NOTE | 2024-07-20 04:25 | DVH ---
EXAM: XY CHEST XRAY 1 VIEW HISTORY: SOB COMPARISON: XY CHEST PORTABLE on DOS: 06/12/23, CHEST PORTABLE on DOS: 01/16/21, CHEST PORTABLE on DOS: 11/28/20, chest CT dated 06/13/2023 TECHNIQUE: Portable AP view of the chest was performed. FINDINGS: No pneumothorax, consolidative infiltrates, or pulmonary edema. There is central peribronchial thicke desirae. The heart is borderline enlarged. IMPRESSION: Reactive airways disease. The lungs are otherwise clear.
[2024-07-20] MEDS: PANTOPRAZOLE 40 MG/10 ML VIAL INJ IV ONE ×2 (06:15→17:00)
[2024-07-20] MEDS: ALBUTEROL SULF 2.5 MG/0.5ML(0.5%) NEB SOLN NEB ONE ×2 (07:12→15:11)
[2024-07-20] MEDS: ONDANSETRON HCL 4 MG/2 ML VIAL IV ONE (07:58)
[2024-07-20] MEDS: methylPREDNISolone SOD SUCC 125 MG/2 ML VL IV ONE (07:58)
--- NOTE | 2024-07-20 14:25 | DVHHP2 ---
History of Present Illness Reason for Visit: Shortness of breath History of Present Illness This 79-year-old female presents in the ED via EMS with a chief complaint of shortness of breath. The patient reports progressive shortness of breath for the past five days. Symptoms is associated with productive cough, shortness of breath, wheezing, and hypoxemia for which prompted patient is to call 911. The patient denies dizziness, syncope, chest pain, abdominal pain, or other acute symptoms. Past medical history of COPD, hypertension, hyperlipidemia, anxiety, and mildly reduced EF. Past Medical History As stated in HPI Past Surgical History Bilateral tubal ligation Family History Reviewed, non-contributory to the management of this case. Past Social History The patient lives at home, denies smoking, alcohol or illicit drugs abuse. Review of Systems Constitutional: Yes: Malaise; No: Fever, Chills, Sweats, Weakness, Other Eyes: No: Pain, Vision change, Conjunctivae inflammation, Eyelid inflammation, Other, Redness ENT: No: Ear pain, Ear discharge, Nose pain, Nose discharge, Nose congestion, Mouth pain, Mouth swelling, Throat pain, Throat swelling, Other Respiratory: Cough, Shortness of breath, SOB with excertion, Wheezing, Sputum; No: Dry, Hemoptysis, Pleuritic Pain, Wheezing, Other Cardiovascular: No: Chest Pain, Palpitations, Orthopnea, Paroxysmal Noc. Dyspnea, Edema, Lt Headedness, Other Gastrointestinal: No: Nausea, Vomiting, Abdominal Pain, Diarrhea, Constipation, Melena, Hematochezia, Other Genitourinary: No Dysuria, No Frequency, No Incontinence, No Hematuria, No Retention, No Other Musculoskeletal: No: other, neck pain, shoulder pain, arm pain, back pain, hand pain, leg pain, foot pain Skin: No: Rash, Lesions, Jaundice, Bruising, Other Neurological: No: Weakness, Numbness, Incoordination, Change in speech, Confusion, Seizures, Other Allergies: Coded Allergies: NO KNOWN ALLERGIES (Unverified , 06/12/23) Exam Vital Signs Vital Signs Date Time Temp Pulse Resp B/P (MAP) Pulse Ox O2 Delivery O2 Flow Rate FiO2 07/20/24 11:37 97 07/20/24 10:00 17 167/56 (93) 90 07/20/24 09:00 Nasal Cannula* 6 44 07/20/24 08:54 98.8 98.8 General Appearance: Alert, Oriented X3, Cooperative, mild distress HEENT: Atraumatic, PERRLA, EOMI Respiratory: Other (Rales, wheezing) Cardiovascular: Regular rate, Normal S1, Normal S2 Abdominal: Normal bowel sounds, Soft, No tenderness Extremities: No clubbing, No cyanosis, No edema, Normal pulses Skin: No rashes, No breakdown, No significant lesion Neuro: Normal gait, Normal speech, Normal tone Psych/Mental Status: Mental status NL Labs/Xrays Labs Test 07/20/24 03:54 07/20/24 03:48 Range/Units Blood Gas Specimen Type Arterial Blood Gas Sample Site Right radial Blood Gas Patient Temperature 37.0 Arterial Blood Date Drawn [id number] Arterial Blood pH 7.406 7.350-7.450 Arterial Blood Partial Pressure CO2 52.2 H 32.0-45.0 mmHg Arterial Blood Partial Pressure O2 316.9 *H 83.0-108.0 mmHg Arterial Blood HCO3 32.0 H 21.0-28.0 mmol/L Arterial Blood Oxygen Saturation 99.8 H 94.0-98.0 % Arterial Blood Base Excess 5.9 H -2.0-3.0 mmol/L Arterial Blood Oxyhemoglobin 98.4 H 94.0-98.0 % Arterial Blood Carboxyhemoglobin 0.9 0.5-1.5 % Arterial Blood Methemoglobin 0.5 0.0-1.5 % Jacek Test Yes Blood Gas Total Hemoglobin 14.80 12.0-16.0 g/dL Blood Gas Set Respiration Rate 12.0 Blood Gas Modality Mask - bipap FiO2 % 100.0 Blood Gas EPAP 6 Blood Gas IPAP 14 Blood Gas Critical Value Read Back Yes Blood Gas Notified Whom Md sara herron Blood Gas Notified Time [id number] Blood Gas Notified By Computing Architect esha narayanan White Blood Count 4.7 4.4-10.8 10^3/uL Red Blood Count 4.49 4.0-5.20 10^6/uL Hemoglobin 14.6 12.2-16.2 g/dL Hematocrit 44.5 36.0-46.0 % Mean Corpuscular Volume 99.1 80.0-100.0 fL Mean Corpuscular Hemoglobin 32.6 H 28.0-32.0 pg Mean Corpuscular Hemoglobin Concent 32.9 32.0-36.0 g/dL Red Cell Distribution Width 12.4 11.8-14.3 % Platelet Count 161 140-450 10^3/uL Mean Platelet Volume 6.4 L 6.9-10.8 fL Neutrophils (%) (Auto) 82.9 H 37.0-80.0 % Lymphocytes (%) (Auto) 8.0 L 10.0-50.0 % Monocytes (%) (Auto) 8.3 0.0-12.0 % Eosinophils (%) (Auto) 0.6 0.0-7.0 % Basophils (%) (Auto) 0.2 0.0-2.0 % Neutrophils # (Auto) 3.9 1.6-8.6 10 ^3/uL Lymphocytes # (Auto) 0.4 0.4-5.4 10 ^3/uL Monocytes # (Auto) 0.4 0-1.3 10 ^3/uL Eosinophils # (Auto) 0 0-0.8 10 ^3/uL Basophils # (Auto) 0 0-0.2 10 ^3/uL Nucleated Red Blood Cells 0.1 % B-Type Natriuretic Peptide 77.62 0-100 pg/mL ROCEDURE(s): CXR1 - CHEST XRAY 1 VIEW REASON: SOB ORDER NUMBER(s): [id number], ACCESSION NUMBER(s): [id number] EXAM: XY CHEST XRAY 1 VIEW HISTORY: SOB COMPARISON: XY CHEST PORTABLE on DOS: 06/12/23, CHEST PORTABLE on DOS: 01/16/21, CHEST PORTABLE on DOS: 11/28/20, chest CT dated 06/13/2023 TECHNIQUE: Portable AP view of the chest was performed. FINDINGS: No pneumothorax, consolidative infiltrates, or pulmonary edema. There is central peribronchial thickening. The heart is borderline enlarged. IMPRESSION: Reactive airways disease. The lungs are otherwise clear. Assessment/Plan Assessment/Plan # acute on chronic respiratory failure with hypoxemia # reactive airway disease # COPD exacerbation Admit to telemetry unit Med neb treatment O2 supplement to sat >90% Chest x-ray in a.m. 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% Monitor # hyperlipidemia Continue with statins # obesity Lifestyle modification counseled DVT prophylaxis Medical plan discussed with patient and RN Plan discussed with: Patient My Orders Orders - YONY BUENROSTRO Procedure Category Date Status Time Admit ADMIT 07/20/24 Verified 14:16 Code Status CODE 07/20/24 Verified 14:16 Ondansetron Hcl PHA 07/20/24 Transmitted (Zofran) 14:30 Enoxaparin Sodium PHA 07/21/24 Transmitted (Lovenox) 10:00 Fall Risk Precautions ROM 07/20/[address] 14:16 Complete Blood Count LAB 07/21/24 Verified 04:00 Comprehensive LAB 07/21/24 Verified Metabolic Panel 04:00 Cardiac DIET 07/20/24 Transmitted Diet-2gna,Lofat,Lochol Dinner Condition: Fair ROM 07/20/24 Transmitted 14:16 Blood Culture TRINITY 07/20/24 Transmitted 14:16 Respiratory Culture TRINITY 07/20/24 Transmitted W/ Gs 14:16 Comprehensive LAB 07/20/24 Transmitted Metabolic Panel 14:16 Chest Xray 1 View XY 07/21/24 Verified 04:00 Albuterol Medneb PHA 07/20/24 Transmitted (Ventolin Medneb) 14:30 Albuterol Medneb PHA 07/20/24 Transmitted (Ventolin Medneb) 18:00 Ipratropium Medneb PHA 07/20/24 Transmitted (Atrovent Medneb) 14:30 Ipratropium Medneb PHA 07/20/24 Transmitted (Atrovent Medneb) 18:00 Methylprednisolone PHA 07/20/24 Transmitted Sod Succ (Solu Medrol 22:00 Hydralazine Injection PHA 07/20/24 Transmitted (Apresoline Inject 14:30 Atorvastatin (Lipitor) PHA 07/21/24 Transmitted 10:00 Pantoprazole Tablet PHA 07/21/24 Transmitted (Protonix Tablet) 10:00 (Nf) Amlodipine PHA 07/21/24 Transmitted Besylate 10:00 Date of Service: Jul 20, 2024 Billing Provider: YONY BUENROSTRO Common Visit Codes: [id number] INP/OBS CARE (HIGH) YONY BUENROSTROP Jul 20, 2024 14:25
[2024-07-20] MEDS ORDERED: IPRATROPIUM BROM 0.5 MG/2.5ML INH SOL NEB PRN (14:30)
[2024-07-20] MEDS ORDERED: ONDANSETRON HCL 4 MG/2 ML VIAL IV PRN (14:30)
[2024-07-20] MEDS ORDERED: ALBUTEROL SULF 2.5 MG/0.5ML(0.5%) NEB SOLN NEB PRN (14:30)
[2024-07-20] MEDS: IPRATROPIUM BROM 0.5 MG/2.5ML INH SOL NEB ONE (15:12)
[2024-07-20] MEDS: hydrALAZINE HCL 20 MG/ML VL IV PRN (15:33)
[2024-07-20 15:34] LABS: Alanine Aminotransferase 19 U/L (7-40); Albumin 4.4 g/dL (3.2-4.8); Alkaline Phosphatase 84 U/L (46-116); Anion Gap 9 (5-15); Aspartate Aminotransferase 27 U/L (13-40); BUN/Creatinine Ratio 15.7 (10.0-20.0); Bilirubin, Total 0.5 mg/dL (0.2-1.0); Blood Urea Nitrogen 13 mg/dL (9-23); Calcium 9.7 mg/dL (8.7-10.4); Chloride 99 mmol/L (98-107); Potassium 4.3 mmol/L (3.5-5.1); Sodium 139 mmol/L (136-145); Total Protein 6.7 g/dL (5.7-8.2)
[2024-07-20 15:38] LABS: Carbon Dioxide 31 mmol/L (20-31); Glucose 202 mg/dL (74-106)
[2024-07-20 16:07] LABS: Urine Bacteria None Seen /hpf (None Seen)
[2024-07-20 16:15] LABS: Urine Blood Negative /uL (Negative); Urine Clarity Clear (Clear); Urine Color Light-Yellow (Yellow); Urine Protein, UAD 1+ (Negative); Urine Specific Gravity 1.017 (1.001-1.035); Urine Squamous Epithelial Cell FEW /hpf (<5); Urine Urobilinogen Normal (Negative); Urine WBC 1 /HPF (0-5); Urine pH 5.5 (5.0-9.0)
[2024-07-20] MEDS: MORPHINE SULFATE INJ 2 MG/ml SYRG IV PRN (17:20)
[2024-07-20] MEDS: guaiFENesin-DM 100/10mg/5ml SYR PO PRN (17:47)
[2024-07-20] MEDS: ALBUTEROL SULF 2.5 MG/0.5ML(0.5%) NEB SOLN NEB SCH (18:16)
[2024-07-20] MEDS: IPRATROPIUM BROM 0.5 MG/2.5ML INH SOL NEB SCH (18:16)
[2024-07-20] MEDS ORDERED: HYDROcodone-ACET 5/325MG TAB PO PRN ×2 (20:45→22:00)
[2024-07-20] MEDS: ETOMIDATE (2MG/ML) 20ML VIAL IV ONE (21:24)
[2024-07-20] MEDS: SUCCINYLCHOLINE CHLORIDE 20 MG/ML 10ML VIAL IV ONE (21:25)
[2024-07-20] MEDS: ROCURONIUM 10MG/ML 10ML VIAL IV ONE ×3 (21:27→22:30)
[2024-07-20] MEDS: MIDAZOLAM DRIP 50 mg/50mL 50 ML IV ONE (21:58)
[2024-07-20] MEDS: fentaNYL Drip 2500mCg/250mlNS 250 ML IV SCH (22:00)
[2024-07-20] MEDS: NOREPINEPHRINE 8 MG/250ML KIT 250 ML IV SCH (22:00)
[2024-07-20] MEDS: MIDAZOLAM DRIP 50 mg/50mL 50 ML IV SCH (22:00)
--- NOTE | 2024-07-20 22:07 | DVHNC2 ---
Procedure - Procedure: Endotracheal Intubation INDICATION: Acute respiratory failure, accessory muscle usage Physician: Monica Hurtado MD [employer] Machine Operator Dr. Flor Tarango CONSENT: Emergent procedure. Implied. Time out time: 2144 Patient medications and allergies reviewed. Patient identification and proposed procedure were verified prior to the procedure by the physician, and a nurse in the patient's room. The heart rate, respiratory rate, oxygen saturations, blood pressure, adequacy of pulmonary ventilation, and response to care were monitored throughout the procedure. The physical status of the patient was reassessed after the procedure. PROCEDURE SUMMARY: A time out was performed. My hands were washed immediately prior to the procedure. I wore a surgical cap, mask with protective eyewear, gown and gloves throughout the procedure. The patient was placed on a traffic monitor specialist including continuous pulse oximetry. The patient received 16 mg Etomidate and 50 mg rocuronium for induction. Cricoid pressure was maintained from time induction agent was given to time of cuff bal loon inflation. Using a MAC 4 LaryngoScope and a size 8.0 endotracheal tube with stylet, the patient was intubated on the 1 attempt. The stylet was removed and cuff balloon was inflated. Appropriate endotracheal tube position was confirmed by direct visualization of vocal cord passage, fogging of the tube, CO2 colorimetric indicator and symmetric breath sounds. The tube was secured at 21 cm at the lips. Post intubation chest x-ray is demonstrates ET tube in place. CPT Code: 42264 MONICA HURTADO MD Jul 20, 2024 22:07
[2024-07-20] MEDS: NOREPINEPHRINE 8 MG/250ML KIT 250 ML IV ONE (22:09)
--- NOTE | 2024-07-20 22:15 | DVHINCON2 ---
Date of service: Jul 20, 2024 Referring Physician BLANCHE Mansfield Reason for Consultation Acute on chronic hypercarbic respiratory failure, acute metabolic encephalopathy History of Present Illness 79-year-old woman history of COPD, hypertension, hyperlipidemia, anxiety, mildly reduced ejection fraction who presented with shortness of breath. A rapid response was called emergently. Patient was obtunded. She had agonal breathi ng. She was hypoxic. She was emergently intubated and placed on mechanical ventilation. Pulmonary consultation is called due to acute on chronic hypoxic respiratory failure and mechanical ventilator management. Review of systems: Unable to obtain due to patient's critical condition. Past medical history: COPD, hypertension, hyperlipidemia, anxiety, mildly reduced ejection fraction Past surgical history: Bilateral tubal ligation Medications: Reviewed Allergies: No known drug allergies. Family history: No family history of premature CAD. No family history of lung disease Social history: Nonsmoker. No alcohol or illicit drug use. Family History: Cerebrovascular accident (CVA) G8 FATHER, Onset:Unknown Diabetes mellitus G8 MOTHER, Onset:Unknown Allergies: Coded Allergies: NO KNOWN ALLERGIES (Unverified , 06/12/23) Home Meds Reported Medications Pantoprazole Sodium Sesquihydr (Pantoprazole Sodium Dr) 40 Mg Tab, 20 MG PO DAILY 06/13/23 Atorvastatin Calcium (ATORVASTATIN CALCIUM) 20 Mg Tab, 1 TAB PO DAILY 11/28/20 Amlodipine Besylate (Amlodipine Besylate) 10 Mg Tab, 1 TAB PO DAILY 11/28/20 Lisinopril (Lisinopril) 5 Mg Tab, 5 MG PO DAILY 11/28/20 Albuterol Sulfate (Albuterol Sulfate Hfa) 108 Mcg/Act Aer, 2 PUFF INH BID 11/28/20 Bppicurppws-Ycwglzwiduzt-Hfmqr (Trelegy Ellipta 100-62.5-25 Mcg/INH) 1 Aer Aer, 1 PUFF INH DAILY PRN 11/28/20 Current Medications Current Medications Medications (Trade) Dose Ordered Sig/Janet Route PRN Reason Start Time Stop Time Status Last Admin Ondansetron HCl (Zofran) 4 mg Q4HP PRN IV NAUSEA / VOMITING 07/20/24 14:30 Enoxaparin Sodium (Lovenox) 40 mg DAILY SC 07/21/24 10:00 Albuterol (Ventolin Medneb) 2.5 mg Q4HPRN PRN NEB SHORTNESS OF BREATH 07/20/24 14:30 Albuterol (Ventolin Medneb) 2.5 mg Q6HR NEB 07/20/24 18:00 07/20/24 18:16 Ipratropium [place] (Atrovent Medneb) 0.5 mg Q4HPRN PRN NEB SHORTNESS OF BREATH 07/20/24 14:30 Ipratropium [place] (Atrovent Medneb) 0.5 mg Q6HR NEB 07/20/24 18:00 07/20/24 18:16 Methylprednisolone Sodium Succinate (Solu Medrol) 60 mg BID IV 07/20/24 22:00 Hydralazine HCl (Apresoline Injection) 10 mg Q6HP PRN IV SBP>150 07/20/24 14:30 07/20/24 17:05 Atorvastatin Calcium (Lipitor) 20 mg DAILY PO 07/21/24 10:00 Patient Own Medication 20 DAILY PO 07/21/24 10:00 Amlodipine Besylate (Norvasc Tablet) 10 mg DAILY PO 07/21/24 10:00 Pantoprazole Sodium (Protonix) 40 mg DAILY IV 07/21/24 10:00 Morphine Sulfate 2 mg Q6HPRN PRN IV MODERATE PAIN (4-6 PAIN SCALE) 07/20/24 17:00 07/20/24 17:20 Guaifenesin/ Dextromethorphan (Robitussin-Dm Liquid) 15 ml Q6HPRN PRN PO FOR COUGH 07/20/24 17:00 07/20/24 17:47 Acetaminophen/ Hydrocodone Bitart (Adrian 5/325MG Tab) 1 tab Q8HPRN PRN PO PAIN SCALE 1 THRU 6 07/20/24 20:45 07/20/24 21:55 DC Midazolam HCl 50 ml @ 1 mls/hr Q24H IV 07/20/24 22:00 Fentanyl Citrate 250 ml @ 2.5 mls/hr Q24H IV 07/20/24 22:00 Norepinephrine Bitartrate 250 ml @ 3.75 mls/hr Q24H IV 07/20/24 22:00 Acetaminophen/ Hydrocodone Bitart (Adrian 5/325MG Tab) 1 tab Q8HPRN PRN PO PAIN SCALE 1-3 07/20/24 22:00 Vital Signs Vital Signs Date Time Temp Pulse Resp B/P (MAP) Pulse Ox O2 Delivery O2 Flow Rate FiO2 07/20/24 20:30 118 92 Facial BiPAP Mask 45 07/20/24 18:19 32 07/20/24 17:20 150/127 07/20/24 16:46 98.0 98.0 07/20/24 15:12 6 Physical Exam Gen.: Patient lying in bed in medical ICU. Sedated, intubated on mechanical ventilator. Head: Normocephalic, atraumatic. Eyes: PERRLA. Ears: Normal external anatomy. Throat: Endotracheal tube and orogastric tube in place. Neck: Supple, trachea midline. Chest: Transmitted breath sounds bilaterally. Decreased air entry bilaterally. No wheezing. Bibasilar crackles. Cardio vascular: Positive S1, positive S2. Regular rate and rhythm. Abdomen: Positive bowel sounds in all 4 quadrants. Soft, nontender, nondistended. : Forman in place. Normal external genitalia. Rectal: Deferred Skin: Warm, dry. Intact. Extremities: 2+ radial pulses bilaterally. No lower extremity edema. Neuro: Sedated. Labs/Diagnostic Data Labs Test 07/20/24 15:05 07/20/24 11:13 07/20/24 03:54 07/20/24 03:48 Range/Units Sodium Level 139 136-145 mmol/L Potassium Level 4.3 3.5-5.1 mmol/L Chloride Level 99 98-107 mmol/L Carbon Dioxide Level 31 20-31 mmol/L Anion Gap 9 5-15 Blood Urea Nitrogen 13 9-23 mg/dL Creatinine 0.83 0.550-1.02 mg/dL Glomerular Filtration Rate Calc 71 >90 mL/min BUN/Creatinine Ratio 15.7 10.0-20.0 Serum Glucose 202 H 74-106 mg/dL Calcium Level 9.7 8.7-10.4 mg/dL Total Bilirubin 0.5 0.2-1.0 mg/dL Aspartate Amino Transferase (AST) 27 13-40 U/L Alanine Aminotransferase (ALT) 19 7-40 U/L Alkaline Phosphatase 84 46-116 U/L Total Protein 6.7 5.7-8.2 g/dL Albumin 4.4 3.2-4.8 g/dL Urine Color Light-yellow Yellow Urine Clarity Clear Clear Urine pH 5.5 5.0-9.0 Urine Specific [place] 1.017 1.001-1.035 Urine Protein 1+ H Negative Urine Ketones Negative Negative Urine Blood Negative Negative /uL Urine Nitrite Negative Negative Urine Bilirubin Negative Negative Urine Urobilinogen Normal Negative mg/dL Urine Leukocyte Esterase Negative Negative /uL Urine RBC 1 0 - 4 /hpf Urine Microscopic WBC 1 0-5 /HPF Urine Squamous Epithelial Cells Few <5 /hpf Urine Bacteria None seen None Seen /hpf Urine Glucose Normal Normal mg/dL Blood Gas Specimen Type Arterial Blood Gas Sample Site Right radial Blood Gas Patient Temperature 37.0 Arterial Blood Date Drawn [id number] Arterial Blood pH 7.406 7.350-7.450 Arterial Blood Partial Pressure CO2 52.2 H 32.0-45.0 mmHg Arterial Blood Partial Pressure O2 316.9 *H 83.0-108.0 mmHg Arterial Blood HCO3 32.0 H 21.0-28.0 mmol/L Arterial Blood Oxygen Saturation 99.8 H 94.0-98.0 % Arterial Blood Base Excess 5.9 H -2.0-3.0 mmol/L Arterial Blood Oxyhemoglobin 98.4 H 94.0-98.0 % Arterial Blood Carboxyhemoglobin 0.9 0.5-1.5 % Arterial Blood Methemoglobin 0.5 0.0-1.5 % Jacek Test Yes Blood Gas Total Hemoglobin 14.80 12.0-16.0 g/dL Blood Gas Set Respiration Rate 12.0 Blood Gas Modality Mask - bipap FiO2 % 100.0 Blood Gas EPAP 6 Blood Gas IPAP 14 Blood Gas Critical Value Read Back Yes Blood Gas Notified Whom Md sara herron Blood Gas Notified Time [id number] Blood Gas Notified By Chapis narayanan White Blood Count 4.7 4.4-10.8 10^3/uL Red Blood Count 4.49 4.0-5.20 10^6/uL Hemoglobin 14.6 12.2-16.2 g/dL Hematocrit 44.5 36.0-46.0 % Mean Corpuscular Volume 99.1 80.0-100.0 fL Mean Corpuscular Hemoglobin 32.6 H 28.0-32.0 pg Mean Corpuscular Hemoglobin Concent 32.9 32.0-36.0 g/dL Red Cell Distribution Width 12.4 11.8-14.3 % Platelet Count 161 140-450 10^3/uL Mean Platelet Volume 6.4 L 6.9-10.8 fL Neutrophils (%) (Auto) 82.9 H 37.0-80.0 % Lymphocytes (%) (Auto) 8.0 L 10.0-50.0 % Monocytes (%) (Auto) 8.3 0.0-12.0 % Eosinophils (%) (Auto) 0.6 0.0-7.0 % Basophils (%) (Auto) 0.2 0.0-2.0 % Neutrophils # (Auto) 3.9 1.6-8.6 10 ^3/uL Lymphocytes # (Auto) 0.4 0.4-5.4 10 ^3/uL Monocytes # (Auto) 0.4 0-1.3 10 ^3/uL Eosinophils # (Auto) 0 0-0.8 10 ^3/uL Basophils # (Auto) 0 0-0.2 10 ^3/uL Nucleated Red Blood Cells 0.1 % B-Type Natriuretic Peptide 77.62 0-100 pg/mL Assessment Impression: Acute on chronic hypoxic respiratory failure On mechanical ventilation Chronic hypercarbic respiratory failure Acute exacerbation of COPD Heart failure with mildly reduced ejection fraction, ejection fraction 45% Obesity with a BMI of 31.9 Acute metabolic encephalopathy Plan: s/p intubation on mechanical ventilator CXR image and report reviewed. Devices in place. No acute opacities. No pneumothorax. Post intubation ABG pending. ABG from admission demonstrates compensation. Chronic hypercarbic respiratory failure. Placed on assist control with a respiratory rate of 24, tidal volume 400, peep of eight, FiO2 at 100%. Titrate FIO2 to keep O2 saturation above 92%. VAP bundle Daily ABG and CXR while intubated. Sedate for ventilatory synchrony Bronchodilators Continue IV steroids Start pressors if necessary for hemodynamic support. Titrate to keep MAP above 65 mmHg/SBP above 90 mmHg. Continue antibiotics. F/u cultures. Monitor renal function due to Acute kidney injury. Monitor electrolytes. Supplement as necessary. Nutritional support. Accucheks, ISS. GI/DVT prophylaxis. D/w HOG SCALDERSALEEM Sanchez and HOME IMPROVEMENT ADVISOR Donal Condition: Critical Prognosis: Poor given multiple comorbidities. Rest of plan per hospitalist and other consultants. A total of 36 minutes of critical care time was spent reviewing the patient record, examining the patient, making a diagnostic and therapeutic plan, discussing this plan with the medical personnel, following up on diagnostic studies and following the patient for clinical stability excluding any and all procedures. At least 50% of this time was spent in direct, [id number] contact. Thank you BLANCHE Mansfield for allowing me to participate in this patient's care. Further recommendations will depend on patient's clinical course. Please do not hesitate to contact me if you have any questions or concerns. This medical document was created using an electronic medical record system with [employer] dictation system. Although this document has been carefully reviewed, there may still be some phonetic and typographical errors. These a reas are purely typographical due to imperfections of the software programs, and do not reflect any compromise in the patient's medical care. Plan discussed with: Other (SALEEM Sanchez, RT, BLANCHE Mansfield) MONICA BRODY MD Jul 20, 2024 22:15
--- NOTE | 2024-07-20 22:28 | DVH ---
CHEST RADIOGRAPH Indication: ET PLACEMENT/ NGT PLACEMENT Technique: Single frontal view of the chest was obtained Comparison: XY CHEST XRAY 1 VIEW on DOS: 07/20/24, XY CHEST PORTABLE on DOS: 06/12/23, CHEST PORTABLE o n DOS: 01/16/21 Findings / IMPRESSION: Scattered patchy opacities diffusely concerning for multifocal pneumonia versus atelectasis. endotrac heal tube projecting 4.3 cm superior to the larissa. Enteric tube side port and tip projects below the GE junction.
[2024-07-20] MEDS: FUROSEMIDE 20 MG/2 ML VIAL IV ONE (22:30)
[2024-07-20] MEDS: FUROSEMIDE 20 MG/2 ML VIAL ONE (22:35)
[2024-07-20 22:51] LABS: Alanine Aminotransferase 23 U/L (7-40); Albumin 4.1 g/dL (3.2-4.8); Alkaline Phosphatase 71 U/L (46-116); Anion Gap 10 (5-15); BUN/Creatinine Ratio 16.3 (10.0-20.0); Blood Urea Nitrogen 16 mg/dL (9-23); Calcium 9.2 mg/dL (8.7-10.4); Carbon Dioxide 28 mmol/L (20-31); Chloride 100 mmol/L (98-107); Magnesium 1.7 mg/dL (1.6-2.6); Sodium 138 mmol/L (136-145)
[2024-07-20 22:52] LABS: Aspartate Aminotransferase 43 U/L (13-40); Bilirubin, Total 0.7 mg/dL (0.2-1.0); Glucose 266 mg/dL (74-106); Phosphorus 3.6 mg/dL (2.4-5.1); Total Protein 6.6 g/dL (5.7-8.2)
[2024-07-20 22:58] LABS: Lactic Acid w/Reflex 2.5 mmol/L (0.4-2.0)
--- NOTE | 2024-07-20 23:21 | DVHNC2 ---
Procedure - ULTRASOUND-GUIDED LEFT INTERNAL JUGULAR CENTRAL VENOUS CANNULATION CPT Codes: 61843 (ultrasound guidance) 79018 (insertion of non-tunneled centrally inserted central venous catheter) 26634 (CXR interpretation) Time out time: 2229 Patient medications and allergies reviewed. The risks and benefits of the procedure and the sedation options and risk were discussed with the patient's healthcare proxy. All questions were answered and informed consent was obtained. Patient identification and proposed procedure were verified prior to the procedure by the physician, and a nurse in the patient's room. The heart rate, respiratory rate, oxygen saturations, blood pressure, adequacy of pulmonary ventilation, and response to care were monitored throughout the procedure. The physical status of the patient was reassessed after the procedure. DATE: 07/20/24 PHYSICIAN: Monica Hurtado PREOPERATIVE DIAGNOSIS: Shock, Acute on chronic hypoxic respiratory failure POSTOPERATIVE DIAGNOSIS: Shock, acute on chronic hypoxic respiratory failure PROCEDURE PERFORMED: Limited Ultrasound-guided LEFT internal jugular central line placement. ANESTHESIA: 2 mL of 1% lidocaine plain. ESTIMATED BLOOD LOSS: less than 5 mL. SPECIMENS: None. COMPLICATIONS: None. INDICATIONS FOR PROCEDURE: The patient is in need of large bore IV access for administration of fluids, including blood products and vasoactive drugs, possible transvenous cardiac pacing and CVP monitoring for hemodynamic instability. DESCRIPTION OF PROCEDURE IN DETAIL: The patient was lying in the Trendelenburg position with head turned 30 degrees away from the insertion site. The skin was thoroughly sponged with chlorhexidine and allowed to dry. All persons involved were shielded with hair nets, face masks and sterile gowns. With sterile-gloved hands the LEFT neck area was draped with the large disposable sterile field provided in the pre-manufactured kit. The skin and subcutaneous tissues superficial to the LEFT internal jugular vein were anesthetized with 2 mL of 1% lidocaine. The LEFT internal jugular vein was identified on ultrasound from the angle of the mandible down into the supraclavicular fossa using the linear ultrasound probe in the transverse orientation. The carotid artery was identified and avoided utilizing color-flow. The internal jugular vein was then placed in the center of the ultrasound field and compressed for patency. A movement artifact was identified as the needle was advanced through the skin and advanced toward the vessel. A real time hyperechoic signal revealed visualization of vascular needle entry into the lumen as blood was noted to flashback in the syringe. The needle was then held in place while the guide wire was advanced. The needle was then removed. Direct visualization of guide wire location within the vein was noted on ultrasound indicating proper placement and was document in the electronic medical record chart. A skin dilator was advanced over the guidewire and removed, and the triple-lumen catheter was then advanced over the guide wire into proper position. The guide wire was removed and discarded. The ports were aspirated which showed good blood return and then carefully flushed with normal saline. The catheter was stabilized and sutured to the skin with 2-0 silk at 2 anchor points. A sterile bio-patch and dressing was placed over the catheter, including the insertion site. The patient tolerated the procedure well. A chest x-ray was ordered for position confirmation. I reviewed the image immediately after it was taken at bedside. Post-procedure chest x-ray demonstrates the central line in the superior vena and no evidence of any pneumothorax. An image recording of the procedure accompanies the chart. MONICA HURTADO MD Jul 20, 2024 23:21
--- NOTE | 2024-07-20 23:22 | DVHNC2 ---
Procedure - LEFT Radial arterial line procedure note Indication: Hemodynamic monitoring, frequent blood ABG draws. Pyrometer Mechanic: Dr. Hurtado Date: July 20, 2024 Time: 2254 Consent: Emergently placed due to hypotension and frequent abg's needed, and hemodynamic monitoring. Patient medications and allergies reviewed. The risks and benefits of the procedure and the sedation options and risk were discussed with the patient's healthcare proxy. All questions were answered and informed consent was obtained. Patient identification and proposed procedure were verified prior to the procedure by the physician, and a nurse in the patient's room. The heart rate, respiratory rate, oxygen saturations, blood pressure, adequacy of pulmonary ventilation, and response to care were monitored throughout the procedure. The physical status of the patient was reassessed after the procedure. Procedure summary: A time-out was performed. My hands were washed immediately prior to the procedure. I wore surgical cap, mask with protective eyewear, sterile gown and sterile gloves throughout the procedure. After an Jacek test was performed to ensure adequate perfusion, the LEFT wrist was prepped using chlorhexidine scrub and draped in sterile fashion using sterile towels. The radial pulse was identified with the use of ultrasound. The wrist was positioned in the usual fashion. Anesthesia was achieved using 1% lidocaine. Using the radial arterial line kit, needle was inserted into the radial artery using ultrasound guidance. Arterial blood flow was seen to pulsate in the flash chamber. The internal guidewire was advanced easily into the radial artery. The catheter was then advanced over the wire and the needle and wire were withdrawn. The catheter was sutured into place with 1 sutures. A sterile Biopatch and Tegaderm was placed over the catheter at the insertion site. The patient tolerated the procedure without any hemodynamic compromise. At the time of procedure completion, the catheter was connected to the shank maker and calibrated. Appropriate waveform and blood pressure tracing was observed. Estimated blood loss is less than 5 mL. CPT: 92301 Arterial line insertion CPT: 62047 US add-on MONICA HURTADO MD Jul 20, 2024 23:22
--- NOTE | 2024-07-20 23:26 | DVHNC2 ---
Procedure - Bronchoscopy procedure note: Indications: Increased endotracheal tube secretions, Possible mucous plugging. Medicines: See DIRECTOR OF PHYSICAL EDUCATION notes. Complications: None Procedure: Patient medications and allergies reviewed. The risks and benefits of the procedure and the sedation options and risk were discussed with the patient's healthcare proxy. All questions were answered and informed consent was obtained. Patient identification and proposed procedure were verified prior to the procedure by the physician, and a nurse, and the respiratory therapist in ICU room. The heart rate, respiratory rate, oxygen saturations, blood pressure, adequacy of pulmonary ventilation, and response to care were monitored throughout the procedure. The physical status of the patient was reassessed after the procedure. The bronchoscope was introduced through the endotracheal tube and advanced into the trachea bronchial tree of both lungs. The procedure was accomplished without difficulty. The patient tolerated the procedure well. Findings: The trachea is in normal caliber. The larissa is sharp. The tracheobronchial tree of the right lung was examined to at least the first subsegmental level. The bronchial mucosa was erythematous and inflamed. The anatomy in the right lung are normal. There are no endobronchial lesions. There was copious whitish frothy secretions from right main stem bronchus onward throughout R1-R10. Right lower lobe (RML) Bronchoalveolar lavage (BAL) obtained. RML BAL sent for gram stain and culture. The left upper lobe, lingula, and left lower lobe were examined to at least the first subsegmental level. Bronchial mucosa was erythematous and inflamed. The anatomy in the left upper lobe and lingula are normal. There were no endobronchial lesions. There was copious whitish frothy secretions from left main stem bronchus onward throughout L1-L10. Mucous plugging removed from L6- L10. There was no active bleeding at the completion of the procedure. Estimated blood loss: Less than 5 mL. Impression: Left lower lobe atelectasis due to mucous plugging Copious frothy secretions removed from bilateral tracheobronchial tree Mucous plugging from L6-L10 RLL BAL performed Recommendation: Follow-up RLL BAL results. Procedure codes: 31156, bronchoscopy, rigid and flexible, including fluoroscopic guidance, one performed; with bronchial endobronchial broncho-alveolar lavage, single or multiple sites MONICA BRODY MD Jul 20, 2024 23:26
--- NOTE | 2024-07-20 23:30 | RESUS ---
CODE ASSIST ASSESSSMENT Initial Information Code Assist Date: Jul 20, 2024 Code Assist Time: 21:31 Location of Arrest: [facility] Room # 216A Situation Situation comment: CODE ASSIST . RN NOTICED SHE WAS SLUMPED IN THE BED, BIPAP TUBING DISCONNECTED. SAO2 61% TUBING RECONNECTED. DECISION MADE BY DR Oswaldo BARRIOS TO INTUBATED. BP NORMAL. HR 120S. Background Background: 79-year-old female came to ER via EMS for shortness of breath pain. Patient has a history of hypertension, CHF, COPD on home oxygen at 6 liters/minute. Few hours ago, developed shortness of breath progressively worsening. Denies any chest pains or wheezing. But arrival patient is saturating 82% at 6 lpm. PT WAS ADMITTED FOR FURTHER EVALUATION. Assessment Temperature (Fahrenheit): 98.5 Blood Pressure Systolic: 106 Blood Pressure Diastolic: 52 Respiratory Rate: 19 O2 Sat by Pulse Oximetry: 95 Bedside Blood Glucose: 216 Assessment comment: PT ORALLY INTUBATED AND SEDATED. Recommendations/Interventions Medications and Responses : Medication Time: 21:28 Medication Comment: ETOMIDATE 16 MG IV ROCURONIUM 100 MG IV PT INTUBATED WITH #8.0 AT 21 AT LIP Heart Rate: 120 EKG Rhythm: Sinus Tachycardia Blood Pressure Systolic: 132 Blood Pressure Diastolic: 97 Respiratory Rate: 16 O2 Sat by Pulse Oximetry: 97 Procedures: Accu check, CXR Portable, CMP, CBC, PT/PTT, Troponin, EKG, Intubated Outcome Outcome: Transfer to ICU Team Members Team Members SHERRY ALEGRIA LUMBER GRADER, NICK LEO RN HS, NIA RN, LASHELL GONZÁLES RN, REYNOLD RN, SHLOMO RT, EDUARD RT NICK SANTOS Jul 20, 2024 23:30
[2024-07-20] MEDS: BUDESONIDE (INHALATION) 0.5 MG/2 ML NEB ONE (23:54)
[2024-07-21] VITALS (112 sets, daily range): BP systolic 66–159; BP diastolic 46–116; PULSE 87–143; RESP 18–28; TEMP 97.3–103.2; O2SAT 8–99
--- NOTE | 2024-07-21 00:03 | DVH ---
CHEST RADIOGRAPH Indication: sob Technique: Single frontal view of the chest was obtained Comparison: XY CHEST XRAY 1 VIEW on DOS: 07/20/24, XY CHEST XRAY 1 VIEW on DOS: 07/20/24, XY CHEST PORTAB LE on DOS: 06/12/23 Findings/ IMPRESSION: Endotracheal tube projects 4.4 cm superior to the larissa. Prominent bilateral diffuse interstitial ma rkings which may be from pulmonary edema. Subtle bibasilar opacification which may represent atelecta sis with superimposed infection not excluded. Left IJ CVC with tip projecting terminating near the ca voatrial junction. Enteric tube projects below the GE junction without visualization of side port or catheter tip.
[2024-07-21 00:28] LABS: Base Excess 2.4 mmol/L (-2.0-3.0)
[2024-07-21] MEDS: BUDESONIDE (INHALATION) 0.5 MG/2 ML NEB NEB SCH (00:33)
[2024-07-21] MEDS: methylPREDNISolone SOD SUCC 125 MG/2 ML VL IV SCH ×2 (02:24→18:01)
[2024-07-21] MEDS: SODIUM CHLORIDE 0.9% 500 ML IV ONE (02:25)
[2024-07-21] MEDS: cefTRIAXone 1GM/50ML D5W 50 ML IV ONE (02:25)
[2024-07-21] MEDS: SODIUM CHLORIDE 0.9% 1,000 ML IV ONE (06:16)
[2024-07-21] MEDS: ACETAMINOPHEN 325 MG TAB PO PRN (06:17)
[2024-07-21 07:23] LABS: Hematocrit 41.5 % (36.0-46.0); Hemoglobin 13.8 g/dL (12.2-16.2); Mean Corpuscular Hemoglobin 32.7 pg (28.0-32.0); Mean Corpuscular Hgb Conc. 33.1 g/dL (32.0-36.0); Mean Corpuscular Volume 98.7 fL (80.0-100.0); Platelet Count (auto) 188 10^3/uL (140-450); Red Blood Cells 4.21 10^6/uL (4.0-5.20); Red Cell Distribution Width 12.7 % (11.8-14.3); White Blood Cell 2.3 10^3/uL (4.4-10.8)
[2024-07-21 07:27] LABS: Basophils % (manual) 0 (0.0-2.0); Blast Cells 0; Eosinophils % (manual) 0 (0-7); Metamyelocytes % 0; Myelocytes % 0; Promyelocytes % 0; Reactive Lymphocytes 0
[2024-07-21 07:39] LABS: Alanine Aminotransferase 17 U/L (7-40); Alkaline Phosphatase 60 U/L (46-116); Anion Gap 9 (5-15); Aspartate Aminotransferase 28 U/L (13-40); BUN/Creatinine Ratio 16.2 (10.0-20.0); Carbon Dioxide 29 mmol/L (20-31); Chloride 103 mmol/L (98-107); Potassium 3.7 mmol/L (3.5-5.1); Sodium 141 mmol/L (136-145)
[2024-07-21 07:42] LABS: Blood Urea Nitrogen 24 mg/dL (9-23); Calcium 8.5 mg/dL (8.7-10.4); Glucose 179 mg/dL (74-106)
[2024-07-21 07:45] LABS: Bilirubin, Total 0.3 mg/dL (0.2-1.0)
[2024-07-21 08:16] LABS: Band Neutrophils % (manual) 11; Lymphocytes % (manual) 9 (10.0-50.0); Monocytes % (manual) 11 (0-12); Platelet Estimate Adequate
[2024-07-21] MEDS ORDERED: VANCOMYCIN PER PHARMACY 0 MG IV SCH (09:00)
[2024-07-21] MEDS: ALBUTEROL SULF 2.5 MG/0.5ML(0.5%) NEB SOLN NEB ONE ×3 (09:15→17:15)
[2024-07-21] MEDS: ALBUTEROL SULF 2.5 MG/0.5ML(0.5%) NEB SOLN ONE ×2 (09:15→17:13)
[2024-07-21] MEDS: PANTOPRAZOLE 40 MG/10 ML VIAL INJ IV SCH (09:33)
[2024-07-21] MEDS: PIPERACILLIN-TAZOB 3.375GM 100 ML IV ONE (09:34)
[2024-07-21] MEDS: ENOXAPARIN SOD 40 MG/0.4 ML SYRINGE SC SCH (09:37)
[2024-07-21] MEDS: VASOPRESSIN 20 UNITS in SODIUM CHL 0.9% 99 ML IV SCH (09:50)
[2024-07-21] MEDS: VANCOMYCIN 1GM/250ML KIT 250 ML IV ONE (09:54)
[2024-07-21] MEDS ORDERED: ATORVASTATIN 20 MG TAB PO SCH (10:00)
[2024-07-21] MEDS: amLODIPine BESYLATE 5 MG TAB PO SCH (10:00)
[2024-07-21 11:07] LABS: Base Excess -9.1 mmol/L (-2.0-3.0)
--- NOTE | 2024-07-21 11:12 | DVH ---
US BiLat Lower DVT HISTORY: RULE OUT DVT COMPARISON: None TECHNIQUE: Duplex Doppler evaluation of the deep venous system of the lower extremity from the common femoral veins, superficial femoral vein, great saphenous vein, deep femoral vein, popliteal vein, an d calf veins, including color Doppler and spectral/pulsed waveform analysis, was performed. FINDINGS: Right: - Common femoral vein: Compressible - Deep femoral vein: Compressible - Femoral vein: Compressible - Popliteal vein: Compressible - Posterior tibial vein: Waveforms present - Other: Nothing Left: - Common femoral vein: Compressible - Deep femoral vein: Compressible - Femoral vein: Compressible - Popliteal vein: Compressible - Posterior tibial vein: Waveforms present - Other: Nothing IMPRESSION: No right or left lower extremity deep venous thrombosis.
[2024-07-21] MEDS: FUROSEMIDE 20 MG/2 ML VIAL IV ONE (11:29)
[2024-07-21 12:36] LABS: Lactic Acid w/Reflex 2.1 mmol/L (0.4-2.0)
--- NOTE | 2024-07-21 13:00 | ECG ---
[facility] Test Date: 2024-07-20 Test Time: 03:27:17 Pat Name: MALACHI AKINS Department: er Room: [address] [place] [address] Gender: F Front Of House Manager: zhang : [phone] Requested By: PANCHO MCKINLEY Order Number: [id number] Reading MD: Lv Shaw Measurements Intervals [place] Rate: 107 P: 81 WY: 213 QRS: -9 QRSD: 110 T: 120 QT: 336 QTc: 449 Interpretive Statements Sinus tachycardia Borderline prolonged [place] interval Left atrial enlargement LVH with secondary repolarization abnormality Anteroseptal infarct, old Baseline wander in lead(s) V2 Electronically Signed On 07-21-2024 21:12:37 PST by Lv Shaw Please click the below link to view image of tracing.
[2024-07-21] MEDS: NOREPINEPHRINE BITARTRATE 32 MG in SODIUM CHL 0.9% 218 ML IV SCH (13:03)
[2024-07-21] MEDS: PHENYLEPHRINE INJ 80 MG in SODIUM CHL 0.9% 242 ML IV SCH (13:03)
[2024-07-21 14:27] LABS: Base Excess -10.9 mmol/L (-2.0-3.0)
[2024-07-21] MEDS: SODIUM CHLORIDE 0.9% 250 ML IV ONE ×2 (15:09→15:30)
[2024-07-21] MEDS ORDERED: SODIUM CHLORIDE 0.9% 250 ML IV ONE (15:15)
[2024-07-21] MEDS: PIPERACILLIN-TAZOB 3.375GM 100 ML IV SCH (17:04)
[2024-07-21 17:11] LABS: COVID19 ANTIGEN SOFIA FIA NEGATIVE (NEGATIVE); Rapid Influenza A Negative (Negative); Rapid Influenza B Negative (Negative)
[2024-07-21 17:12] LABS: Base Excess -12.1 mmol/L (-2.0-3.0)
[2024-07-21] MEDS: ALBUTEROL SULF 2.5 MG/0.5ML(0.5%) NEB SOLN NEB SCH (18:00)
[2024-07-21] MEDS: IPRATROPIUM BROM 0.5 MG/2.5ML INH SOL NEB SCH (18:00)
[2024-07-21] MEDS: SODIUM CHLORIDE 0.9% 1,000 ML IV SCH (18:08)
[2024-07-21] MEDS: SODIUM BICARB 50mEq/50ml Vial 50 ML in SOD CHL 0.45% 1,000 ML IV SCH (20:02)
[2024-07-21] MEDS ORDERED: cefTRIAXone 1GM/50ML D5W 50 ML IV SCH (21:00)
[2024-07-21] MEDS ORDERED: METOCLOPRAMIDE HCL 5MG/ml INJ 2ml VIAL IV PRN (21:45)
[2024-07-21] MEDS ORDERED: Jevity 1.2 Cal/Fiber 1 Liter GT SCH (21:45)
--- NOTE | 2024-07-21 21:50 | DVHPNRES ---
Progress Note Date Seen: Jul 21, 2024 Resident Creating Document: JUNG HELLER RESIDENT Medical Necessity Reason Pt with a Central, PICC or Fol: No Subjective Review of Systems pt seen and examined at bedside currently sedated and intubated ROS could not be obtained Objective vital signs Vital Sign Date Time Temp Pulse Resp B/P (MAP) Pulse Ox O2 Delivery O2 Flow Rate FiO2 07/21/24 20:56 101.5 07/21/24 20:52 142 24 85/63 (70) 92 60 07/21/24 18:00 Mechanical Ventilator+ 07/20/24 15:12 6 Total Intake and Output 07/20/24 07/20/24 07/21/24 15:00 23:00 07:00 Intake Total 8.25 ml 310.75 ml Output Total 50 ml Balance 8.25 ml 260.75 ml medications Current Medications Medications Dose Ordered Sig/Janet Route Start Time Stop Time Status Last Admin Dose Admin Enoxaparin Sodium 40 mg DAILY SC 07/21/24 10:00 07/21/24 09:37 40 MG Albuterol 2.5 mg Q4HPRN PRN NEB 07/20/24 14:30 Ipratropium [place] 0.5 mg Q4HPRN PRN NEB 07/20/24 14:30 Hydralazine HCl 10 mg Q6HP PRN IV 07/20/24 14:30 07/20/24 17:05 10 MG Pantoprazole Sodium 40 mg DAILY IV 07/21/24 10:00 07/21/24 09:33 40 MG Midazolam HCl 50 ml @ 1 mls/hr Q24H IV 07/20/24 22:00 07/21/24 02:38 5 MLS/HR Fentanyl Citrate 250 ml @ 2.5 mls/hr Q24H IV 07/20/24 22:00 07/20/24 22:00 2.5 MLS/HR Vasopressin 20 units/Sodium Chloride 100 ml @ 9 mls/hr Q11H7M IV 07/20/24 23:30 07/21/24 09:50 9 MLS/HR Budesonide 0.5 mg BID NEB 07/21/24 10:00 07/21/24 06:08 0.5 MG Acetaminophen 650 mg Q8HPRN PRN PO 07/21/24 06:00 07/21/24 20:56 650 MG Vancomycin HCl 0 ml @ 0 mls/hr UD IV 07/21/24 09:00 Piperacillin Sod/ Tazobactam Sod 100 ml @ 25 mls/hr Q8H IV 07/21/24 17:00 07/21/24 17:04 25 MLS/HR Norepinephrine Bitartrate 32 mg/ Sodium Chloride 250 ml @ 0.938 mls/ hr Q24H IV 07/21/24 10:30 07/21/24 13:03 14.063 MLS/HR Methylprednisolone Sodium Succinate 60 mg Q8H IV 07/21/24 18:00 07/21/24 18:01 60 MG Phenylephrine HCl 80 mg/Sodium Chloride 250 ml @ 7.5 mls/hr Q24H IV 07/21/24 11:30 07/21/24 20:38 30.938 MLS/HR Albuterol 2.5 mg Q4HR NEB 07/21/24 18:00 Ipratropium [place] 0.5 mg Q4HR NEB 07/21/24 18:00 Sodium Bicarbonate 50 ml/ Sodium Chloride 1,050 ml @ 75 mls/hr Q14H IV 07/21/24 19:45 07/21/24 20:02 75 MLS/HR Metoclopramide HCl 5 mg Q6HPRN PRN IV 07/21/24 21:45 UNV Examination Examination General Appearance: sedated and intubated HEENT: EOMI Respiratory: mild wheezing Cardiovascular: Regular rate, Normal S1, Normal S2 Abdominal: Normal bowel sounds Extremities: No cyanosis, No edema, Normal pulses, No tenderness/swelling Skin: No rashes, No breakdown Neuro: sedated and intubated laboratory and microbiology Laboratory Tests 07/21/24 05:31 Test 07/21/24 05:31 Range/Units Serum Glucose 179 H 74-106 mg/dL Microbiology Date/Time Source Procedure Growth Status 07/20/24 21:44 Nose MRSA Screen - Final Complete 07/20/24 15:05 Blood Blood Culture - Preliminary NO GROWTH AFTER 24 HOURS OF INCUBATION. Resulted Labs and/or images reviewed: Labs reviewed by me, Image(s) reviewed by me Problem List/Assessment/Plan Problem List/Assessment/Plan Assessment/Plan Neurology #Sedation Versed Fentanyl #Metabolic encephalopathy due to hypercapnia Currently on mechanical ventilator Cardiology #Shock, likely septic Currently on norepinephrine, vasopressin and phenylephrine Patient was already on IV steroids for COPD exacerbation #Heart failure with mildly reduced ejection fraction, acute on chronic -currently on IV vasopressors/inotropes Judicious use of IV Lasix as currently patient is septic shock #Hypertension Currently in shock #Hyperlipidemia We will resume home medications when patient is extubated Respiratory #Acute hypoxic hypercarbic respiratory failure due to COPD exacerbation, CHF exacerbation Currently on mechanical ventilator respiratory rate 24 tidal volume 400 cc FiO2 60% and PEEP of five #COPD exacerbation -ipratropium and albuterol p.r.n. IV magnesium Methylprednisolone 60 mg q.8 #? Community-acquired pneumonia, Gram-positive/Gram-negative/MRSA/Pseudomonas -IV antibiotics Sputum culture #Mucus plugs Status post bronchoscopy #0.5 cm nodule in the periphery of the right middle lobe -seen on imaging 12/05/23 GI Endocrine Infectious disease #Sepsis with septic shock likely due to pneumonia, other causes not ruled out yet Lactic acidosis due to sepsis Pancultures IV antibiotics Nephrology #Metabolic acidosis with respiratory acidosis -bicarb with half NS at 75 cc/hour ABG in the a.m. #CK likely due to vasomotor Nephropathy due to sepsis IV fluids Monitor BMP DVT prophylaxis Lovenox PUD prophylaxis Pantoprazole 40 mg IV b.i.d. Bowel regimen Colace Nutrition DVT Lines Left IJ CvC placed on 07/21/2024 Left radial A-line placed on 07/20/2024 Forman's catheter placed on 07/21/2024 Drips Midazolam Fentanyl Norepinephrine Vasopressin Phenylephrine Code status discussed with the family for greater than 21 minutes, full code Critical care time excluding procedures : 83 minutes Case discussion with Dr. Neal Family updated about the condition of the patient over the phone Plan discussed with: Other My Orders My Orders Orders - JUNG HELLER RESIDENT Procedure Category Date Status Time Electrocardigram EKG 07/21/24 Logged 10:11 Bilat Lower Dvt US 07/21/24 Resulted 10:14 Sodium Chl 0.9% PHA 07/21/24 In Process (Ns... 10:30 Electrocardigram EKG 07/21/24 Logged 13:28 Electrocardigram EKG 07/21/24 Logged 14:28 Electrocardigram EKG 07/21/24 Logged 16:28 Sod Chl 0.45% PHA 07/21/24 In Process (Sodi... W/Sodium 19:45 Electrocardigram EKG 07/21/24 Logged 20:47 Ng To Lis ROM 07/21/24 In Process 20:49 Metoclopramide PHA 07/21/24 Logged Injection (Reglan 21:45 Nutritional PHA 07/21/24 Transmitted Supplements (Jevity 21:45 Docusate Sodium PHA 07/21/24 Transmitted Liquid (Colace Liquid) 22:00 Comprehensive LAB 07/22/24 Verified Metabolic Panel 04:00 Complete Blood Count LAB 07/22/24 Verified 04:00 Magnesium LAB 07/22/24 Verified 04:00 Abg W/ Co-Ox RT 07/22/24 Verified 04:00 Chest Portable XY 07/22/24 Verified 04:00 Date of Service: Jul 21, 2024 Billing Provider: CARA NEAL MD Common Visit Codes: [id number] CARE 30-74 MIN, [id number] CARE-EACH +30MIN JUNG HELLER RESIDENT Jul 21, 2024 21:50 CARA NEAL MD Jul 22, 2024 12:42
[2024-07-21] MEDS: MAGNESIUM SULFATE 1GM/100ML 100 ML IV SCH (22:32)
[2024-07-21] MEDS: DOCUSATE ORAL LIQUID 100 MG/10 ML UD GT SCH (22:32)
[2024-07-22] VITALS (71 sets, daily range): BP systolic 62–269; BP diastolic 15–265; PULSE 114–147; RESP 0–28; TEMP 95.4–100.8; O2SAT 37–94
[2024-07-22 04:21] LABS: Alkaline Phosphatase 64 U/L (46-116); Anion Gap 18 (5-15); BUN/Creatinine Ratio 12.4 (10.0-20.0); Sodium 138 mmol/L (136-145)
[2024-07-22 04:23] LABS: Bilirubin, Total 0.5 mg/dL (0.2-1.0)
[2024-07-22 04:39] LABS: Alanine Aminotransferase 125 U/L (7-40); Albumin 2.8 g/dL (3.2-4.8); Aspartate Aminotransferase 318 U/L (13-40); Blood Urea Nitrogen 33 mg/dL (9-23); Calcium 7.1 mg/dL (8.7-10.4); Carbon Dioxide 13 mmol/L (20-31); Chloride 107 mmol/L (98-107); Glucose 130 mg/dL (74-106); Magnesium 2.8 mg/dL (1.6-2.6); Potassium 5.3 mmol/L (3.5-5.1); Total Protein 4.7 g/dL (5.7-8.2)
[2024-07-22 04:51] LABS: Base Excess -19.1 mmol/L (-2.0-3.0)
--- NOTE | 2024-07-22 04:57 | DVH ---
CHEST [facility]: Single frontal view of the chest was obtained Comparison: XY CHEST XRAY 1 VIEW on DOS: 07/20/24 FINDINGS: Lines and Tubes: The endotracheal tube terminates 4.7 cm above the larissa. There is a left central ve nous catheter with its tip terminating in the superior cavoatrial junction. Lungs: Patchy bilateral airspace disease similar to prior study. Pleura: No effusion. No pneumothorax. Cardiomediastinal contours: Unremarkable Bones: No acute osseous abnormality. IMPRESSION: 1. Multifocal airspace disease.
[2024-07-22] MEDS: SODIUM CHLORIDE 0.9% 500 ML IV ONE (05:27)
[2024-07-22] MEDS: SODIUM BICARB 8.4% 50Meq/50ml SYR Vial IV ONE ×4 (05:27→11:44)
[2024-07-22 08:51] LABS: Base Excess -18.9 mmol/L (-2.0-3.0)
[2024-07-22] MEDS: SODIUM BICARB 50mEq/50ml Vial 100 ML in SOD CHL 0.45% 1,000 ML IV ONE (09:45)
[2024-07-22] MEDS ORDERED: DEXTROSE (50%) 50ML SYRG IV PRN (09:45)
[2024-07-22] MEDS: InsuLIN REG 1unit/0.01ml Soln (100units/ml) IV ONE (09:45)
[2024-07-22] MEDS: ENOXAPARIN SOD 30 MG/0.3 ML SYRINGE SC SCH (10:00)
[2024-07-22] MEDS: SODIUM BICARB 8.4% 50Meq/50ml SYR INJ ONE (10:08)
[2024-07-22] MEDS: EPINEPHrine HCL 250 ML IV SCH (10:23)
[2024-07-22] MEDS: EPINEPHrine HCL 250 ML IV ONE (10:38)
[2024-07-22] MEDS: DEXTROSE (50%) 50ML SYRG IV ONE (10:39)
--- NOTE | 2024-07-22 10:41 | ECG ---
[facility] Test Date: 2024-07-21 Test Time: 20:29:31 Pat Name: MALACHI AKINS Department: Room: [address] [place] [address] A Gender: F Tetryl Boiling Tub Operator: Diana MOHR : 1945 Requested By: JUNG HELLER Order Number: [id number] Reading MD: Lv Shaw Measurements Intervals [place] Rate: 143 P: 91 MD: 144 QRS: -25 QRSD: 88 T: 73 QT: 244 QTc: 376 Interpretive Statements Sinus tachycardia Possible Anterior infarct , age undetermined Electronically Signed On 07-22-2024 17:46:45 PST by Lv Shaw Please click the below link to view image of tracing.
[2024-07-22] MEDS: MEROPENEM 500MG IVPB 50 ML IV ONE (10:46)
[2024-07-22] MEDS: SODIUM BICARB 50mEq/50ml Vial 100 ML in SOD CHL 0.45% 1,000 ML IV SCH (10:51)
[2024-07-22] MEDS: methylPREDNISolone SOD SUCC 125 MG/2 ML VL IV SCH (11:01)
[2024-07-22 11:19] LABS: Mean Corpuscular Hemoglobin 32.3 pg (28.0-32.0); Platelet Count (auto) 50 10^3/uL (140-450)
[2024-07-22 11:22] LABS: Hematocrit 40.1 % (36.0-46.0); Hemoglobin 12.9 g/dL (12.2-16.2); Mean Corpuscular Hgb Conc. 32.2 g/dL (32.0-36.0); Mean Corpuscular Volume 100.4 fL (80.0-100.0); Red Blood Cells 3.99 10^6/uL (4.0-5.20); Red Cell Distribution Width 12.6 % (11.8-14.3)
[2024-07-22] MEDS: HYDROCORTISONE SOD SUCC 100 MG/2ML INJ VIAL IV ONE (11:44)
[2024-07-22 11:51] LABS: White Blood Cell 1.7 10^3/uL (4.4-10.8)
[2024-07-22] MEDS: DOPamine 3200MCG/ML 250 ML IV SCH (11:52)
[2024-07-22 11:53] LABS: Basophils % (manual) 0 (0.0-2.0); Blast Cells 0; Eosinophils % (manual) 0 (0-7); Metamyelocytes % 0; Myelocytes % 0; Promyelocytes % 0; Reactive Lymphocytes 0
[2024-07-22] MEDS: InsuLIN REG 1unit/0.01ml Soln (100units/ml) SC SCH (12:00)
[2024-07-22] MEDS: ACCU-CHEK COMFORT CURVE STRIP VI SCH (12:26)
[2024-07-22 12:43] LABS: INR 2.73 (0.9-1.15); Partial Thromboplastin Time 56.1 SEC (24.5-34.5); Prothrombin Time 26.2 sec (9.3-11.8)
[2024-07-22 12:53] LABS: Alkaline Phosphatase 82 U/L (46-116); Anion Gap 26 (5-15); Chloride 106 mmol/L (98-107); Potassium 4.8 mmol/L (3.5-5.1)
[2024-07-22 12:55] LABS: BUN/Creatinine Ratio 12.9 (10.0-20.0)
[2024-07-22 12:57] LABS: Bilirubin, Total 0.8 mg/dL (0.2-1.0)
[2024-07-22 13:06] LABS: Carbon Dioxide 14 mmol/L (20-31); Glucose 123 mg/dL (74-106); Sodium 146 mmol/L (136-145)
[2024-07-22 13:07] LABS: Alanine Aminotransferase 967 U/L (7-40); Albumin 2.1 g/dL (3.2-4.8); Blood Urea Nitrogen 37 mg/dL (9-23); Calcium 6.2 mg/dL (8.7-10.4); Total Protein 3.7 g/dL (5.7-8.2)
--- NOTE | 2024-07-22 13:29 | ECG ---
[facility] Test Date: 2024-07-20 Test Time: 07:04:19 Pat Name: MALACHI AKINS Department: ED Room: [address] [place] [address] A Gender: F Yarn Spooler: NAHID : 1945 Requested By: JUNG HELLER Order Number: [id number] Reading MD: Lv Shaw Measurements Intervals [place] Rate: 86 P: 76 IL: 140 QRS: 15 QRSD: 101 T: -44 QT: 491 QTc: 588 Interpretive Statements Sinus rhythm Borderline T abnormalities, inferior leads Prolonged QT interval Electronically Signed On 07-22-2024 17:48:39 PST by Lv Shaw Please click the below link to view image of tracing.
[2024-07-22 13:37] LABS: Band Neutrophils % (manual) 2; Lymphocytes % (manual) 21 (10.0-50.0); Monocytes % (manual) 5 (0-12); Platelet Estimate Adequate
[2024-07-22 13:54] LABS: Aspartate Aminotransferase 4320 U/L (13-40)
[2024-07-22] MEDS: MORPHINE SULFATE INJ 2 MG/ml SYRG IV PRN (15:26)
[2024-07-22] MEDS: LORazepam 2MG/ML-1ML VIAL IV PRN (15:27)
--- NOTE | 2024-07-22 16:29 | ECG ---
[facility] Test Date: 2024-07-21 Test Time: 13:42:35 Pat Name: MALACHI AKINS Department: Room: [address] [place] [address] A Gender: F Marble Polisher: : 1945 Requested By: JUNG HELLER Order Number: [id number] Reading MD: Lv Shaw Measurements Intervals [place] Rate: 127 P: 78 [place]: 136 QRS: 8 QRSD: 94 T: 51 QT: 320 QTc: 465 Interpretive Statements Sinus tachycardia T wave abnormality, consider inferior ischemia Electronically Signed On 07-22-2024 17:45:20 PST by Lv Shaw Please click the below link to view image of tracing.
--- NOTE | 2024-07-22 19:02 | DVHPNRES ---
Progress Note Date Seen: Jul 22, 2024 Resident Creating Document: JUNG HELLER RESIDENT Medical Necessity Reason Pt with a Central, PICC or Fol: No Subjective Review of Systems pt seen and examined at bedside was on sedated and intubated on mech vent was on multiple pressors Family at bedside later decided for terminal Weaning Objective vital signs Vital Sign Date Time Temp Pulse Resp B/P (MAP) Pulse Ox O2 Delivery O2 Flow Rate FiO2 07/22/24 15:31 99.1 129 0 76/15 (35) 210.4 71/53 (59) 07/22/24 15:01 60 07/22/24 14:00 Mechanical Ventilator+ 07/22/24 10:00 91 07/20/24 15:12 6 Total Intake and Output 07/21/24 07/21/24 07/22/24 15:00 23:00 07:00 Intake Total 472.876 ml 1285.750 ml 1398.313 ml Output Total 25 ml 410 ml Balance 472.876 ml 1260.750 ml 988.313 ml medications Current Medications Medications Dose Ordered Sig/Janet Route Start Time Stop Time Status Last Admin Dose Admin Morphine Sulfate 2 mg Q2HPRN PRN IV 07/22/24 15:15 07/22/24 15:26 2 MG Lorazepam 1 mg Q1HP PRN IV 07/22/24 15:15 07/22/24 15:27 1 MG Examination Examination General Appearance: sedated and intubated HEENT: EOMI Respiratory: mild wheezing Cardiovascular: Regular rate, Normal S1, Normal S2 Abdominal: Normal bowel sounds Extremities: No cyanosis, No edema, Normal pulses, No tenderness/swelling Skin: No rashes, No breakdown Neuro: sedated and intubated laboratory and microbiology Laboratory Tests 07/22/24 12:00 07/22/24 10:30 Test 07/22/24 12:00 Range/Units Serum Glucose 123 H 74-106 mg/dL Microbiology Date/Time Source Procedure Growth Status 07/21/24 02:45 Blood Blood Culture - Preliminary NO GROWTH AFTER 24 HOURS OF INCUBATION. Resulted 07/20/24 23:29 Urine - [place] Urine Culture - Preliminary Resulted 07/20/24 23:15 Sputum Gram Stain - Final Resulted 07/20/24 23:15 Sputum Respiratory Culture - Preliminary Resulted 07/20/24 21:44 Nose MRSA Screen - Final Complete Labs and/or images reviewed: Labs reviewed by me, Image(s) reviewed by me Problem List/Assessment/Plan Problem List/Assessment/Plan Assessment/Plan Neurology #Sedation Versed Fentanyl later were turned off as patient was hypotensive even on 5 pressors #Metabolic encephalopathy due to hypercapnia Currently on mechanical ventilator Cardiology #Shock, likely septic Currently on 5 pressors Patient was already on IV steroids for COPD exacerbation #Heart failure with mildly reduced ejection fraction, acute on chronic -currently on IV vasopressors/inotrope Judicious use of IV Lasix as currently patient is septic shock #Hypertension Currently in shock #Hyperlipidemia - will resume home medications when patient is extubated Respiratory #Acute hypoxic hypercarbic respiratory failure due to COPD exacerbation, CHF exacerbation on mechanical ventilator respiratory rate 28 tidal volume 400 cc FiO2 60% and PEEP of five later was terminally weaned #COPD exacerbation -ipratropium and albuterol p.r.n. IV magnesium Methylprednisolone 60 mg q.8 #? Community-acquired pneumonia, Gram-positive/Gram-negative/MRSA/Pseudomonas -IV antibiotics Sputum culture growing staph #Mucus plugs Status post bronchoscopy #0.5 cm nodule in the periphery of the right middle lobe -seen on imaging 12/05/23 GI Endocrine Infectious disease #Sepsis with septic shock likely due to pneumonia, other causes not ruled out yet Lactic acidosis due to sepsis Panculture IV antibiotics Nephrology #Metabolic acidosis with respiratory acidosis -bicarb with half NS at 75 cc/hour ABG in the a.m. #CK likely due to vasomotor Nephropathy due to sepsis IV fluids Monitor BMP DVT prophylaxis Lovenox PUD prophylaxis Pantoprazole 40 mg IV b.i.d. Bowel regimen Colace Nutrition DVT Lines Left IJ CvC placed on 07/21/2024 Left radial A-line placed on 07/20/2024 Forman's catheter placed on 07/21/2024 Drips Midazolam Fentanyl Norepinephrine Vasopressin Phenylephrine epinephrine dopamine Code status discussed with the family for greater than 21 minutes, full code Critical care time excluding procedures : 81 minutes Case discussion with Dr. Vasquez Family updated about the condition of the patient bedside later decided for the terminal weaning Plan discussed with: Other My Orders My Orders Orders - JUNG HELLER RESIDENT Procedure Category Date Status Time Electrocardigram EKG 07/21/24 Logged 20:47 Ng To Lis ROM 07/21/24 In Process 20:49 Abg W/ Co-Ox RT 07/22/24 Logged 04:00 Chest Portable XY 07/22/24 Resulted 04:00 Abg W/ Co-Ox RT 07/22/24 Logged 08:34 Ventilator Orders RT 07/22/24 Transmitted 11:21 Morphine Sulfate PHA 07/22/24 In Process Injection 15:15 Lorazepam 2mg/Ml Inj PHA 07/22/24 In Process (Ativan Inj) 15:15 Rt To Terminal Wean Pt ORDERS 07/22/24 Transmitted 15:03 Oxygen By Nasal RT 07/22/24 Transmitted Cannula 15:06 JUNG HELLER RESIDENT Jul 22, 2024 19:02
--- NOTE | 2024-07-22 19:02 | DVHDSRES ---
Discharge Summary Date of Admission Resident Creating Document: JUNG BARCLAY Jul 20, 2024 at 14:16 Labs/Diagnostic Data: Laboratory Results Test 07/22/24 12:24 07/22/24 12:00 07/22/24 10:30 07/22/24 08:45 POC Glucose 86 mg/dl (70-106) Prothrombin Time 26.2 sec (9.3-11.8) Prothrombin Time INR 2.73 (0.9-1.15) Activated Partial Thromboplast Time 56.1 SEC (24.5-34.5) Sodium Level 146 mmol/L (136-145) Potassium Level 4.8 mmol/L (3.5-5.1) Chloride Level 106 mmol/L (98-107) Carbon Dioxide Level 14 mmol/L (20-31) Anion Gap 26 (5-15) Blood Urea Nitrogen 37 mg/dL (9-23) Creatinine 2.86 mg/dL (0.550-1.02) Glomerular Filtration Rate Calc 16 mL/min (>90) BUN/Creatinine Ratio 12.9 (10.0-20.0) Serum Glucose 123 mg/dL (74-106) Calcium Level 6.2 mg/dL (8.7-10.4) Total Bilirubin 0.8 mg/dL (0.2-1.0) Aspartate Amino Transferase (AST) 4320 U/L (13-40) Alanine Aminotransferase (ALT) 967 U/L (7-40) Alkaline Phosphatase 82 U/L (46-116) Total Protein 3.7 g/dL (5.7-8.2) Albumin 2.1 g/dL (3.2-4.8) White Blood Count 1.7 10^3/uL (4.4-10.8) Red Blood Count 3.99 10^6/uL (4.0-5.20) Hemoglobin 12.9 g/dL (12.2-16.2) Hematocrit 40.1 % (36.0-46.0) Mean Corpuscular Volume 100.4 fL (80.0-100.0) Mean Corpuscular Hemoglobin 32.3 pg (28.0-32.0) Mean Corpuscular Hemoglobin Concent 32.2 g/dL (32.0-36.0) Red Cell Distribution Width 12.6 % (11.8-14.3) Platelet Count 50 10^3/uL (140-450) Mean Platelet Volume 9.7 fL (6.9-10.8) Neutrophils (%) (Auto) % (37.0-80.0) Lymphocytes (%) (Auto) % (10.0-50.0) Monocytes (%) (Auto) % (0.0-12.0) Basophils (%) (Auto) % (0.0-2.0) Neutrophils # (Auto) 10 ^3/uL (1.6-8.6) Lymphocytes # (Auto) 10 ^3/uL (0.4-5.4) Monocytes # (Auto) 10 ^3/uL (0-1.3) Differential Total Cells Counted 100.0 (100) Neutrophils % (Manual) 72 (37.0-80.0) Band Neutrophils % (Manual) 2 Lymphocytes % (Manual) 21 (10.0-50.0) Monocytes % (Manual) 5 (0-12) Eosinophils % (Manual) 0 (0-7) Basophils % (Manual) 0 (0.0-2.0) Metamyelocytes % (manual) 0 Myelocytes % (Manual) 0 Promyelocytes % (Manual) 0 Blast Cells % (Manual) 0 Nucleated Red Blood Cells % Reactive Lymphocytes 0 Platelet Estimate Adequate Blood Gas Specimen Type Arterial Blood Gas Sample Site Arterial line Blood Gas Patient Temperature 37.0 Arterial Blood Date Drawn [id number] Arterial Blood pH 7.024 (7.350-7.450) Arterial Blood Partial Pressure CO2 46.2 mmHg (32.0-45.0) Arterial Blood Partial Pressure O2 92.5 mmHg (83.0-108.0) Arterial Blood HCO3 11.8 mmol/L (21.0-28.0) Arterial Blood Oxygen Saturation 94.6 % (94.0-98.0) Arterial Blood Base Excess -18.9 mmol/L (-2.0-3.0) Arterial Blood Oxyhemoglobin 94.0 % (94.0-98.0) Arterial Blood Carboxyhemoglobin 0.3 % (0.5-1.5) Arterial Blood Methemoglobin 0.3 % (0.0-1.5) Jacek Test N/a Blood Gas Total Hemoglobin 14.30 g/dL (12.0-16.0) Blood Gas Set Respiration Rate 24.0 Blood Gas Modality Vent - ac FiO2 % 60.0 Blood Gas Tidal Volume 400.0 Blood Gas PEEP or CPAP 5.0 Blood Gas Critical Value Read Back Yes Blood Gas Notified Whom Monica barclay md Blood Gas Notified Time [id number] Blood Gas Notified By [employer] Investigator kelle zerr Test 07/22/24 03:13 07/21/24 16:00 07/21/24 14:20 07/21/24 13:40 Magnesium Level 2.8 mg/dL (1.6-2.6) Random Vancomycin Level 17.8 ug/mL (5-10) Influenza Type A Antigen Negative (Negative) Influenza Type B Antigen Negative (Negative) SARS-CoV-2 Antigen (Rapid) Negative (NEGATIVE) Blood Gas Spontaneous Rate 24 Blood Gas Comments Lactic Acid Level 3.0 mmol/L (0.4-2.0) Test 07/21/24 05:31 07/20/24 22:20 07/20/24 11:13 07/20/24 03:54 Thyroid Stimulating Hormone (TSH) 0.74 uIU/mL (0.55-4.78) Phosphorus Level 3.6 mg/dL (2.4-5.1) Ammonia 30 umol/L (11-32) B-Type Natriuretic Peptide 255.20 pg/mL (0-100) Urine Color Light-yellow (Yellow) Urine Clarity Clear (Clear) Urine pH 5.5 (5.0-9.0) Urine Specific [place] 1.017 (1.001-1.035) Urine Protein 1+ (Negative) Urine Ketones Negative (Negative) Urine Blood Negative /uL (Negative) Urine Nitrite Negative (Negative) Urine Bilirubin Negative (Negative) Urine Urobilinogen Normal mg/dL (Negative) Urine Leukocyte Esterase Negative /uL (Negative) Urine RBC 1 /hpf (0 - 4) Urine Microscopic WBC 1 /HPF (0-5) Urine Squamous Epithelial Cells Few /hpf (<5) Urine Bacteria None seen /hpf (None Seen) Urine Glucose Normal mg/dL (Normal) Blood Gas EPAP 6 Blood Gas IPAP 14 Test 07/20/24 03:48 Eosinophils (%) (Auto) 0.6 % (0.0-7.0) Eosinophils # (Auto) 0 10 ^3/uL (0-0.8) Basophils # (Auto) 0 10 ^3/uL (0-0.2) Other Laboratory Tests 07/22/24 12:00 07/22/24 10:30 Discharge Statement: "Patient was advised to return to the ER or call 911 if any headaches, dizziness, shortness of breath, chest pain, abdominal pain, bleeding, fevers, or worsening of medical condition. Patient was counseled about treatment plan, medications, possible side effects, patientverbalized understanding. All questions were answered to the best of my ability. This discharge took greater then 30 minutes in planning, reviewing documentation, counseling the patient, and discussing with other team members." ASSESSMENT ASSESSMENT Assessment JUNG BARCLAY RESIDENT Jul 22, 2024 19:02
[2024-07-22] MEDS ORDERED: MEROPENEM 500MG IVPB 50 ML IV SCH (22:00)
[2024-07-22] MEDS ORDERED: HYDROCORTISONE SOD SUCC 100 MG/2ML INJ VIAL IV SCH (22:00)
== END 2024-07-22 19:45 | DRG 871 ==
LOC: EDUNIT# 03:17 → EDBD 03:17 → ER 03:17 → TELE 14:16 → TELE-CENTR 16:42 → CATH ICU 21:47 → ICU WEST 07-21 15:56
PROVIDERS: ADMIT Internal Medicine; ATTEND Anesthesiology
PROC: 5A1945Z Respiratory Ventilation, 24-96 Consecutive Hours (ICD-10-PCS; principal; 2024-07-20)
PROC: 0BH17EZ Insertion of Endotracheal Airway into Trachea, Via Natural or Artificial Opening (ICD-10-PCS; 2024-07-20)
PROC: 02HV33Z Insertion of Infusion Device into Superior Vena Cava, Percutaneous Approach (ICD-10-PCS; 2024-07-20)
PROC: B548ZZA Ultrasonography of Superior Vena Cava, Guidance (ICD-10-PCS; 2024-07-20)
PROC: 03HY32Z Insertion of Monitoring Device into Upper Artery, Percutaneous Approach (ICD-10-PCS; 2024-07-20)
PROC: 0B9D8ZX Drainage of Right Middle Lung Lobe, Via Natural or Artificial Opening Endoscopic, Diagnostic (ICD-10-PCS; 2024-07-20)
PROC: 5A09357 Assistance with Respiratory Ventilation, Less than 24 Consecutive Hours, Continuous Positive Airway Pressure (ICD-10-PCS; 2024-07-20)
PROC: 0BC78ZZ Extirpation of Matter from Left Main Bronchus, Via Natural or Artificial Opening Endoscopic (ICD-10-PCS; 2024-07-20)
DX: A41.9 Sepsis, unspecified organism (principal); G93.41 Metabolic encephalopathy; J96.21 Acute and chronic respiratory failure with hypoxia; J96.22 Acute and chronic respiratory failure with hypercapnia; J15.69 Pneumonia due to other Gram-negative bacteria; N17.0 Acute kidney failure with tubular necrosis; R65.21 Severe sepsis with septic shock; J15.9 Unspecified bacterial pneumonia; I50.23 Acute on chronic systolic (congestive) heart failure; J44.1 Chronic obstructive pulmonary disease with (acute) exacerbation; J44.0 Chronic obstructive pulmonary disease with (acute) lower respiratory infection; E87.4 Mixed disorder of acid-base balance; Z20.822 Contact with and (suspected) exposure to COVID-19; I11.0 Hypertensive heart disease with heart failure; E78.5 Hyperlipidemia, unspecified; F41.9 Anxiety disorder, unspecified; E66.9 Obesity, unspecified; Z99.81 Dependence on supplemental oxygen; Z87.442 Personal history of urinary calculi; Z82.3 Family history of stroke; Z83.3 Family history of diabetes mellitus; Z79.899 Other long term (current) drug therapy; Z68.29 Body mass index [BMI] 29.0-29.9, adult
CPT/HCPCS: 31624; 36415; 36556; 36600; 36620; 71045; 80053; 80202; 81001; 82140; 82805; 82962; 83605; 83735; 83880; 84100; 84443; 85007; 85025; 85027; 85610; 85730; 87040; 87070; 87077; 87081; 87086; 87186; 87205; 87426; 87804; 93005; 93970; 94002; 94003; 94640; 94660; 99291; G0378; J0131; J0171; J0330; J1265; J2185; J2405; J2470; J2543